=== PATIENT | female | born 1935 ===

== ENCOUNTER 2016-05-29 19:50 | Inpatient (IN) | payer OTHER, MEDICARE ==
[2016-05-29 20:17] VITALS: BMI 33.3
--- NOTE | 2016-05-29 20:17 | ED PDOC ---
Arrival/HPI - General Chief Complaint: Weakness/Neurological Deficit Time Seen by Provider: 05/29/16 19:51 Historian: Patient, Family - History of Present Illness Narrative History of Present Illness (Text): 05/29/16 20:17 Nathalie Peacock is an 81 year old female, whose past medical history includes hypertension, paroxysmal SVT, dyslipidemia, hyperlipidemia, degenerative joint disease, NSTEMI, and GERD, who presents to the Emergency department brought in by family complaining of generalized weakness today. Relative states patient woke up with generalized weakness and unable to ambulate secondary to weakness. Family note patient was pale with chills. Relative originally attributed patient symptoms to hypogylcemia and not patient improved slightly after drinking juice, but symptoms returned tonight at 19:30. Patient denies any appetite changes, chest pain, shortness of breath, nausea, vomiting, diarrhea, urinary symptoms, back pain, neck pain, headache, dizziness, or any other complaints. PMD: Dr Jennifer De Souza Time/Duration: Other (today) Symptom Onset: Gradual Symptom Course: Unchanged Activities at Onset: Rest, Light Context: Home Past Medical History - Provider Review Nursing Documentation Reviewed: Yes - Infectious Disease Hx of Infectious Diseases: None - Reproductive Menopause: Yes - Cardiac Hx Pacemaker: No - Pulmonary Hx Respiratory Disorders: No - Neurological Hx Paralysis: No - HEENT Hx HEENT Disorder: No - Renal Hx Renal Disorder: No - Endocrine/Metabolic Hx Endocrine Disorders: No - Hematological/Oncological Hx Blood Transfusions: No Hx Blood Transfusion Reaction: No - Integumentary Hx Dermatological Disorder: No - Musculoskeletal/Rheumatological Hx Musculoskeletal Disorders: No - Gastrointestinal Hx Gastrointestinal Disorders: Yes - Genitourinary/Gynecological Hx Genitourinary Disorders: No - Psychiatric Hx Psychophysiologic Disorder: No Hx Emotional Abuse: No Hx Physical Abuse: No Hx Substance Use: No - Surgical History Hx Hysterectomy: Yes - Anesthesia Hx Anesthesia Reactions: No Hx Malignant Hyperthermia: No - Suicidal Assessment Feels Threatened In Home Enviroment: No Family/Social History - Physician Review Nursing Documentation Reviewed: Yes Family/Social History: No Known Family HX Smoking Status: Never Smoked Hx Alcohol Use: No Hx Substance Use: No Allergies/Home Meds Allergies/Adverse Reactions: Allergies No Known Allergies Allergy (Verified 04/24/15 17:20) Home Medications: Home Meds Medication Instructions Recorded Confirmed Atorvastatin Calcium [Lipitor] 10 mg PO DAILY 05/18/12 05/31/15 Metoprolol Succinate [Toprol XL] 25 mg PO BID 04/24/15 05/31/15 Alendronate [Fosamax] 70 mg PO MON 05/30/15 05/31/15 Ergocalciferol [Drisdol 50,000 1 cap PO MON 05/30/15 05/31/15 Intl Units Cap] Review of Systems - Physician Review All systems were reviewed & negative as marked: Yes - Review of Systems Constitutional: Other (+chills, +generalized weakness) Eyes: Normal ENT: Normal Respiratory: Normal. absent: SOB, Cough Cardiovascular: Normal. absent: Chest Pain Gastrointestinal: Normal. absent: Abdominal Pain, Diarrhea, Nausea, Vomiting Genitourinary Female: Normal. absent: Dysuria, Frequency, Hematuria, Urine Output Changes Musculoskeletal: Normal. absent: Back Pain, Neck Pain Skin: Other (+pale) Neurological: Normal. absent: Headache, Dizziness Endocrine: Normal Hemo/Lymphatic: Normal Psychiatric: Normal Physical Exam Vital Signs Reviewed: Yes Vital Signs Temp Pulse Pulse Resp BP BP Pulse Ox 05/30/16 02:09 88 16 100/58 L 98 05/30/16 02:07 88 16 100/54 L 98 05/30/16 00:25 74 16 112/62 100 05/29/16 23:16 101 F H 74 16 92/54 L 98 05/29/16 22:39 101.3 F H 05/29/16 22:31 101.3 F H 84 16 83/45 L 94 L 05/29/16 20:20 104.1 F H 98 H 18 106/51 L 99 05/29/16 20:10 95 H 106/51 L Temperature: Febrile Blood Pressure: Hypotensive Pulse: Regular Respiratory Rate: Normal Appearance: Positive for: Well-Appearing, Non-Toxic, Comfortable Pain Distress: None Mental Status: Positive for: Alert and Oriented X 3 - Systems Exam Head: Present: Atraumatic, Normocephalic Pupils: Present: PERRL Extroacular Muscles: Present: EOMI Conjunctiva: Present: Normal Mouth: Present: Moist Mucous Membranes Neck: Present: Normal Range of Motion Respiratory/Chest: Present: Clear to Auscultation, Good Air Exchange. No: Respiratory Distress, Accessory Muscle Use Cardiovascular: Present: Regular Rate and Rhythm, Normal S1, S2. No: Murmurs Abdomen: Present: Normal Bowel Sounds. No: Tenderness, Distention, Peritoneal Signs Back: Present: Normal Inspection Upper Extremity: Present: Normal Inspection. No: Cyanosis, Edema Lower Extremity: Present: Normal Inspection. No: Edema Neurological: Present: GCS=15, CN II-XII Intact, Speech Normal Skin: Present: Warm, Dry, Normal Color. No: Rashes Psychiatric: Present: Alert, Oriented x 3, Normal Insight, Normal Concentration Medical Decision Making ED Course and Treatment: 05/29/16 20:17 Impression: 81 year old female brought in by family complaining of generalized weakness and chills since this morning. Differential Diagnosis include but are not limited to: UTI vs. sepsis vs. SIRS vs. hypoglycemia vs. electrolyte abnormality. Plan: -- EKG -- Chest X-ray -- Labs, VBG, blood cultures -- Urinalysis, urine cultures -- IV fluids -- Tylenol -- Reassess and disposition Prior Visits: Notes and results from previous visits were reviewed. On 04/24/2015, pt was seen in the Emergency department for generalized weakness , dizziness, and near-syncope. Pt was admitted to the hospital for further evaluation. Progress Notes: Reviewed EKG, NSR at [address]-segment elevations or depressions, no T-wave inversions, normal intervals. 05/29/16 21:50 Reviewed radiology, Chest X-ray shows no active disease. 05/29/16 22:[address] De Souza, who is aware and agrees with plan. Accepts pt in to his service. 05/29/16 22:28 Lactate: 2.2, pt febrile, hypotensive. Called Code Sepsis. 05/29/16 23:[address] De Souza, requests ICU consult. seen by dr watters not icu candidate pt will be admitted to telemetry 05/30/16 06:45 - Lab Interpretations Lab Results: 05/29/16 20:24 05/29/16 20:24 Lab Results 05/29/16 23:43: pO2 60 H, VBG pH 7.27 L, VBG pCO2 49.0, VBG HCO3 22.5, VBG Total CO2 24.0, VBG O2 Sat (Calc) 90.2 H, VBG Base Excess -4.7 L, VBG Potassium 4.3, Sodium 138.0, Chloride 111.0 H, Glucose 124 H, Lactate 1.2, FiO2 21.0, Lactic Acid 1.1, Venous Blood Potassium 4.3 05/29/16 21:00: Urine Color Yellow, Urine Appearance Cloudy, Urine pH 6.0, Ur Specific [place] 1.025, Urine Protein 100 H, Urine Glucose (UA) Negative, Urine Ketones Negative, Urine Blood Large H, Urine Nitrate Negative, Urine Bilirubin Negative, Urine Urobilinogen 0.2, Ur Leukocyte Esterase Small H, Urine RBC 5 - 10, Urine WBC 10 - 15, Ur Epithelial Cells 0 - 2, Urine Bacteria Many 05/29/16 20:24: WBC 7.8 D, RBC 3.85, Hgb 12.2, Hct 36.4, MCV 94.5, MCH 31.7, MCHC 33.5, RDW 12.4, Plt Count 150, MPV 9.3, Gran % 89.7 H, Lymph % (Auto) 6.3 L , [place] % (Auto) 3.3, Eos % (Auto) 0.4 L, Baso % (Auto) 0.3, Gran # 6.97 H, Lymph # 0.5 L, [place] # 0.3, Eos # 0.0, Baso # 0.02, PT 10.7, INR 0.99, APTT 25.4 , pO2 41, VBG pH 7.36, VBG pCO2 49.0, VBG HCO3 27.7, VBG Total CO2 29.2 H, VBG O2 Sat (Calc) 76.2 H, VBG Base Excess 1.5, VBG Potassium 4.5, Sodium 137.0, Chloride 105.0, Glucose 146 H, Lactate 2.2 H, FiO2 21.0, Potassium 4.1, Carbon Dioxide 28, Anion Gap 13, BUN 19, Creatinine 1.1, Est GFR ( Amer) 58, Est GFR (Non-Af Amer) 48, Random Glucose 141 H, Calcium 9.3, Phosphorus 2.7, Magnesium 2.0, Total Bilirubin 1.1, AST 108 H, ALT 99 H, Alkaline Phosphatase 157 H, Total Protein 7.5, Albumin 3.9, Globulin 3.7, Albumin/Globulin Ratio 1.1 , Venous Blood Potassium 4.5 05/29/16 00:00: Total Creatine Kinase 128, Troponin I 0.24 H* D I have reviewed the lab results: Yes - RAD Interpretation Narrative RAD Interpretations (Text): Chest X-ray shows no active disease. 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 Rate : 98 BPM Rhythm : NSR Interpretation : No ST-segment elevations or depressions, no T-wave inversions, normal intervals. Comparison : No acute change from previous EKG on 04/24/2015. Interpreted by ED Physician: Yes Type: 12 lead EKG - Medication Orders Current Medication Orders: Acetaminophen (Tylenol 325mg Tab) 650 mg PO Q6H PRN PRN Reason: FOR TEMP>=99.5F Acetaminophen (Tylenol 650 Mg Supp) 650 mg RC Q6H PRN PRN Reason: TEMP>=99.5F Aspirin (Ecotrin) 81 mg PO DAILY RASHAUN Clopidogrel Bisulfate (Plavix) 75 mg PO DAILY RASHAUN Enoxaparin Sodium (Lovenox) 80 mg SC Q12H RASHAUN PRN Reason: Protocol Last Admin: 05/30/16 04:25 Dose: 80 MG Subcutaneous Administrations Document 05/30/16 04:25 [id number] (Rec: 05/30/16 04:25 [id number]) Injection Site MAR Injection Site Left Abdomen Charges for Administration # of Subcutaneous Administrations 1 Ergocalciferol (Drisdol 50,000 Intl Units Cap) 1 cap PO MON RASHAUN Piperacillin Sod/Tazobactam Sod (Zosyn 3.375 In Ns 100ml) 100 mls @ 200 mls/hr IVPB Q6 RASHAUN PRN Reason: Protocol Stop: 06/03/16 18:29 Last Admin: 05/30/16 05:35 Dose: 200 MLS/HR eMAR Start Stop Document 05/30/16 05:35 [email or web address] (Rec: 05/30/16 05:36 [id number]) Intravenous Solution Start Date 05/30/16 Start Time 05:36 End Date 05/30/16 End time 06:01 Total Infusion Time 25 Pantoprazole Sodium (Protonix Ec Tab) 40 mg PO ACB RASHAUN Polyethylene Glycol (Miralax) 17 gm PO DAILY RASHAUN Discontinued Medications Acetaminophen (Tylenol 325mg Tab) 650 mg PO STAT STA Stop: 05/29/16 20:32 Last Admin: 05/29/16 20:58 Dose: 650 MG Albuterol/Ipratropium (Duoneb 3 Mg/0.5 Mg (3 Ml) Ud) 3 ml IH STAT STA Stop: 05/30/16 04:43 Last Admin: 05/30/16 05:05 Dose: 3 ML Clopidogrel Bisulfate (Plavix) 300 mg PO STAT STA Stop: 05/30/16 03:59 Last Admin: 05/30/16 04:25 Dose: 300 MG Furosemide (Lasix) 40 mg IVP STAT STA Stop: 05/30/16 04:43 Last Admin: 05/30/16 04:57 Dose: 40 MG MAR Blood Pressure Document 05/30/16 04:57 [email or web address] (Rec: 05/30/16 04:57 [id number]) Blood Pressure Blood Pressure (100/60-150/90) 170/88 IVP Administration Document 05/30/16 04:57 [email or web address] (Rec: 05/30/16 04:57 [id number]) Charges for Administration # of IVP Administrations 1 Sodium Chloride (Sodium Chloride 0.9%) 1,000 mls @ 80 mls/hr IV .[id number] RASHAUN Last Admin: 05/29/16 20:45 Dose: 80 MLS/HR eMAR Start Stop Document 05/29/16 20:45 SF (Rec: 05/29/16 20:58 SF [email or web address]) Intravenous Solution Start Date 05/29/16 Start Time 20:45 Piperacillin Sod/Tazobactam Sod (Zosyn 3.375 In Ns 100ml) 100 mls @ 200 mls/hr IVPB STAT STA PRN Reason: Protocol Stop: 05/29/16 22:43 Last Admin: 05/29/16 22:38 Dose: 200 MLS/HR eMAR Start Stop Document 05/29/16 22:38 [email or web address] (Rec: 05/29/16 22:38 [email or web address] [facility] [id number]) Intravenous Solution Start Date 05/29/16 Start Time 22:38 End Date 05/29/16 Vancomycin HCl (Vancomycin 1gm) 250 mls @ 167 mls/hr IVPB STAT STA PRN Reason: Protocol Stop: 05/29/16 23:44 Last Admin: 05/29/16 23:46 Dose: 167 MLS/HR eMAR Start Stop Document 05/29/16 23:46 [email or web address] (Rec: 05/29/16 23:47 [id number]) Intravenous Solution Start Date 05/29/16 Start Time 23:47 End Date 05/29/16 Sodium Chloride (Sodium Chloride 0.9%) 1,000 mls @ 150 mls/hr IV .Q6H40M RASHAUN Last Admin: 05/30/16 02:19 Dose: 150 MLS/HR eMAR Start Stop Document 05/30/16 02:19 [email or web address] (Rec: 05/30/16 02:19 [email or web address] [id number]) Intravenous Solution Start Date 05/30/16 Start Time 02:19 End Date 05/30/16 Sodium Chloride 2,400 ml/ IV (SUPPLIES) 2,400 mls @ 4,953.24 mls/hr IV ONCE ONE PRN Reason: 60 ML/KG/HR Stop: 05/29/16 22:28 Last Admin: 05/29/16 22:40 Dose: 4,953.24 MLS/HR eMAR Start Stop Document 05/29/16 22:40 [email or web address] (Rec: 05/29/16 22:40 [id number]) Intravenous Solution Start Date 05/29/16 Start Time 22:40 End Date 05/29/16 Sodium Chloride 2,400 ml/ IV (SUPPLIES) 2,400 mls @ 4,953.24 mls/hr IV ONCE ONE PRN Reason: 60 ML/KG/HR Stop: 05/29/16 23:46 Last Admin: 05/30/16 01:10 Dose: 4,953.24 MLS/HR eMAR Start Stop Document 05/30/16 01:10 [email or web address] (Rec: 05/30/16 01:10 CAST [id number]) Intravenous Solution Start Date 05/30/16 Start Time 01:10 End Date 05/30/16 Iohexol (Omnipaque 350 100 Ml) Confirm Administered Dose 350 mg .ROUTE .STK-MED ONE Stop: 05/30/16 01:33 Metoprolol Tartrate (Lopressor) 2.5 mg IVP ONCE ONE Stop: 05/30/16 03:14 Last Admin: 05/30/16 03:24 Dose: 2.5 MG MAR Pulse and Blood Pressure Document 05/30/16 03:24 [id number] (Rec: 05/30/16 03:25 [id number]) Pulse Pulse Rate (60-90) 140 Blood Pressure Blood Pressure (100/60-150/90) 98/64 IVP Administration Document 05/30/16 03:24 [email or web address] (Rec: 05/30/16 03:25 [email or web address] [id number]) Charges for Administration # of IVP Administrations 1 - Scribe Statement The provider has reviewed the documentation as recorded by the Estela Pierce Provider Attestation: All medical record entries made by the Andieibrosa maria were at my direction and personally dictated by me. I have reviewed the chart and agree that the record accurately reflects my personal performance of the history, physical exam, medical decision making, and the department course for this patient. I have also personally directed, reviewed, and agree with the discharge instructions and disposition. Disposition/Present on Arrival - Present on Arrival Any Indicators Present on Arrival: No History of DVT/PE: No History of Uncontrolled Diabetes: No Urinary Catheter: No History of Decub. Ulcer: No History Surgical Site Infection Following: None - Disposition Have Diagnosis and Disposition been Completed?: Yes Diagnosis: Sepsis Disposition: HOSPITALIZED Disposition Time: 22:45 Condition: FAIR
[2016-05-29 20:32] LABS: ADD MANUAL DIFF? NO
[2016-05-29 20:38] LABS: BASO # 0.02 K/mm3 (0.0-2.0); BASO % 0.3 % (0.0-3.0); EOS % 0.4 % (1.5-5.0); GRAN # 6.97 (1.4-6.5); GRAN % 89.7 % (50.0-68.0); HEMATOCRIT 36.4 % (36.0-48.0); LYMPH # 0.5 (1.2-3.4); LYMPH % 6.3 % (22.0-35.0); MEAN CELL VOLUME 94.5 fL (80.0-105.0); MEAN CORPUSCULAR HEMOGLOBIN 31.7 pg (25.0-35.0); MEAN CORPUSCULAR HGB CONC 33.5 g/dl (31.0-37.0); MEAN PLATELET VOLUME 9.3 fl (7.0-11.0); MONO # 0.3 (0.1-0.6); MONO % 3.3 % (1.0-6.0); PLATELET COUNT 150 10^3/uL (120.0-450.0); RED CELL DISTRIBUTION WIDTH 12.4 % (11.5-14.5); VENOUS BLOOD GAS BASE EXCESS 1.5 mmol/L (0.0-2.0); VENOUS BLOOD PH 7.36 (7.32-7.43); WHITE BLOOD COUNT 7.8 10^3/ul (4.5-11.0)
[2016-05-29] MEDS ORDERED: Sodium Chloride 0.9% 1,000 ML IV SCH ×2 (20:45→22:16)
[2016-05-29 20:49] LABS: ALB/GLOB RATIO 1.1 (1.1-1.8); BILIRUBIN,TOTAL 1.1 mg/dL (0.2-1.3); CALCIUM 9.3 mg/dL (8.4-10.5); PHOSPHOROUS 2.7 mg/dL (2.5-4.5); POTASSIUM 4.1 mmol/L (3.6-5.0); TOTAL PROTEIN 7.5 g/dL (5.8-8.3)
[2016-05-29 20:56] LABS: INR 0.99 (0.93-1.08); PARTIAL THROMBOPLASTIN TIME 25.4 Seconds (23.7-30.8)
[2016-05-29 21:13] LABS: URINE BILIRUBIN NEGATIVE (NEGATIVE); URINE BLOOD LARGE (NEGATIVE); URINE GLUCOSE (UA) NEGATIVE (NEGATIVE); URINE KETONE NEGATIVE (NEGATIVE); URINE LEUKOCYTE ESTERASE SMALL Leu/uL (NEGATIVE); URINE PROTEIN 100 mg/dL (<30 mg/dL); URINE UROBILINOGEN 0.2 E.U./dL (<1 E.U./dL)
[2016-05-29 21:15] LABS: URINE APPEARANCE CLOUDY (CLEAR); URINE COLOR YELLOW (YELLOW)
[2016-05-29 21:19] LABS: URINE BACTERIA MANY (NEG); URINE EPITHELIAL CELLS 0 - 2 /hpf (0-5)
[2016-05-29] MEDS ORDERED: Piperacillin/Tazobact 3.375 gm 100 ML IVPB STA (22:14)
[2016-05-29] MEDS ORDERED: Vancomycin 1gm in NS 250ml 250 ML IVPB STA (22:15)
[2016-05-29 23:55] LABS: VENOUS BLOOD GAS BASE EXCESS -4.7 mmol/L (0.0-2.0); VENOUS BLOOD PH 7.27 (7.32-7.43)
--- NOTE | 2016-05-30 00:51 | CP.PCM.CON ---
History of Present Illness - History of Present Illness History of Present Illness: Reason for ICU consult: Code Sepsis + hypotension HPI: 81 y/o female with a PMHx Htn, DJD, Osteoporosis, Diverticulosis and GERD was brought to the ED by her family due to complaints of lethargy and fatigue which began this morning. As per the patient she states she woke up this morning and felt very tired; the patient's family thought she may be suffering from hypoglycemia so they gave her some juice to drink and she only momentarily felt better. She subsequently felt hot so they gave her 2 tylenol pills and she felt better, but again, only for a short while. She continued to remain lethargic for the rest of the day so they brought her in to the ED. The patient herself reports having urinary hesitancy and only urinating a small amount over the past 2-3 days, otherwise denies any complaints of dysuria, fequency, shortness of breath, light headedness, dizziness, chest pain, palpitations, abdominal pain, nausea, vomiting, headache or diarrhea. She does report feeling fevers and chills and also admits to feeling more weak than usual. She denies any recent travel or sick contacts. PMHx: Htn COSME Osteoporosis Diverticulosis GERD Allergies: NKDA Fam Hx: reviewed and noncontributory Soc Hx: denies tobacco/etoh/illicit drug use; lives at home with her family Home meds: Miralax 17gm po daily Protonix 40mg po daily Lovaza 2gm po daily Toprol XL 25mg po daily Folic Acid 1mg po daily Vit D weekly Celebrex 200mg po daily Lipitor 10mg po hs ASA 81mg po daily Fosamax 70mg po Qwkly Review of Systems - Review of Systems Review of Systems: As per HPI otherwise negative for a 12 point ROS Past Patient History - Infectious Disease Hx of Infectious Diseases: None - Past Social History Smoking Status: Never Smoked Alcohol: None Drugs: Denies Home Situation {Lives}: With Family - CARDIAC Hx Pacemaker: No - PULMONARY Hx Respiratory Disorders: No - NEUROLOGICAL Hx Paralysis: No - HEENT Hx HEENT Problems: No - RENAL Hx Chronic Kidney Disease: No - ENDOCRINE/METABOLIC Hx Endocrine Disorders: No - HEMATOLOGICAL/ONCOLOGICAL Hx Blood Transfusions: No Hx Blood Transfusion Reaction: No - INTEGUMENTARY Hx Dermatological Problems: No - MUSCULOSKELETAL/RHEUMATOLOGICAL Hx Musculoskeletal Disorders: No - GASTROINTESTINAL Hx Gastrointestinal Disorders: Yes - GENITOURINARY/GYNECOLOGICAL Hx Genitourinary Disorders: No - PSYCHIATRIC Hx Psychophysiologic Disorder: No Hx Emotional Abuse: No Hx Physical Abuse: No Hx Substance Use: No - SURGICAL HISTORY Hx Hysterectomy: Yes - ANESTHESIA Hx Anesthesia Reactions: No Hx Malignant Hyperthermia: No Meds Allergies/Adverse Reactions: Allergies Allergy/AdvReac Type Severity Reaction Status Date / Time No Known Allergies Allergy Verified 04/24/15 17:20 - Medications Medications: Current Medications Acetaminophen (Tylenol 325mg Tab) 650 mg PO Q6H PRN PRN Reason: FOR TEMP>=99.5F Acetaminophen (Tylenol 650 Mg Supp) 650 mg RC Q6H PRN PRN Reason: TEMP>=99.5F Aspirin (Ecotrin) 81 mg PO DAILY RASHAUN Ergocalciferol (Drisdol 50,000 Intl Units Cap) 1 cap PO MON RASHAUN Sodium Chloride (Sodium Chloride 0.9%) 1,000 mls @ 150 mls/hr IV .Q6H40M RASHAUN Piperacillin Sod/Tazobactam Sod (Zosyn 3.375 In Ns 100ml) 100 mls @ 200 mls/hr IVPB Q6 RASHAUN PRN Reason: Protocol Stop: 06/03/16 18:29 Pantoprazole Sodium (Protonix Ec Tab) 40 mg PO ACB RASHAUN Polyethylene Glycol (Miralax) 17 gm PO DAILY RASHAUN Physical Exam - Constitutional Appears: Well, Non-toxic - Head Exam Head Exam: ATRAUMATIC, NORMOCEPHALIC - Eye Exam Eye Exam: EOMI, Normal appearance - ENT Exam ENT Exam: Mucous Membranes Moist - Respiratory Exam Respiratory Exam: Clear to Auscultation Bilateral, NORMAL BREATHING PATTERN. absent: Rhonchi, Wheezes - Cardiovascular Exam Cardiovascular Exam: REGULAR RHYTHM, +S1, +S2 - GI/Abdominal Exam GI & Abdominal Exam: Soft. absent: Guarding, Rebound, Tenderness - Rectal Exam Rectal Exam: Deferred - Extremities Exam Extremities exam: Positive for: normal inspection. Negative for: calf tenderness - Back Exam Back exam: absent: CVA tenderness (L), CVA tenderness (R) - Neurological Exam Neurological exam: Alert, Oriented x3 - Psychiatric Exam Psychiatric exam: Normal Affect, Normal Mood - Skin Skin Exam: Dry, Intact, Normal Color, Warm Results - Vital Signs Recent Vital Signs: Last Vital Signs Temp 101 F H 05/29/16 23:16 Pulse 74 05/30/16 00:25 Resp 16 05/30/16 00:25 BP 112/62 05/30/16 00:25 Pulse Ox 100 05/30/16 00:25 - Labs Result Diagrams: 05/29/16 20:24 05/29/16 20:24 Labs: Laboratory Results - last 24 hr 05/29/16 05/29/16 05/29/16 20:24 21:00 23:43 WBC 7.8 D RBC 3.85 Hgb 12.2 Hct 36.4 MCV 94.5 MCH 31.7 MCHC 33.5 RDW 12.4 Plt Count 150 MPV 9.3 Gran % 89.7 H Lymph % (Auto) 6.3 L [place] % (Auto) 3.3 Eos % (Auto) 0.4 L Baso % (Auto) 0.3 Gran # 6.97 H Lymph # 0.5 L Humphreys # 0.3 Eos # 0.0 Baso # 0.02 PT 10.7 INR 0.99 APTT 25.4 pO2 41 60 H VBG pH 7.36 7.27 L VBG pCO2 49.0 49.0 VBG HCO3 27.7 22.5 VBG Total CO2 29.2 H 24.0 VBG O2 Sat (Calc) 76.2 H 90.2 H VBG Base Excess 1.5 -4.7 L VBG Potassium 4.5 4.3 Sodium 137 138.0 Chloride 100 111.0 H Glucose 146 H 124 H Lactate 2.2 H 1.2 FiO2 21.0 21.0 Potassium 4.1 Carbon Dioxide 28 Anion Gap 13 BUN 19 Creatinine 1.1 Est GFR ( Amer) 58 Est GFR (Non-Af Amer) 48 Random Glucose 141 H Calcium 9.3 Phosphorus 2.7 Magnesium 2.0 Total Bilirubin 1.1 AST 108 H ALT 99 H Alkaline Phosphatase 157 H Total Protein 7.5 Albumin 3.9 Globulin 3.7 Albumin/Globulin Ratio 1.1 Venous Blood Potassium 4.5 4.3 Urine Color Yellow Urine Appearance Cloudy Urine pH 6.0 Ur Specific [place] 1.025 Urine Protein 100 H Urine Glucose (UA) Negative Urine Ketones Negative Urine Blood Large H Urine Nitrate Negative Urine Bilirubin Negative Urine Urobilinogen 0.2 Ur Leukocyte Esterase Small H Urine RBC 5 - 10 Urine WBC 10 - 15 Ur Epithelial Cells 0 - 2 Urine Bacteria Many - Imaging and Cardiology Chest x-ray Status: Image reviewed by me (no pulmonary effusions; no significant pul edema or infiltrates noted) Assessment & Plan - Assessment and Plan (Free Text) Assessment: 81 y/o female with a PMHx Htn, DJd, Osteoporosis, Diverticulosis, GERD was brought to the ED with weakness and lethargy and is found to have a UTI. She was febrile on arrival at 104 F with an SBP in the 80's. She has been fluid resuscitated with 2.4L IVF and is now receiving an additional 2L IVF hydration. A repeat lactic acid was done showing a drop from 2.2 to 1.2 and her most recent BP is 112/62mmHg. She appears to have been successfully fluid resuscitated and should be continued on IVF for maintenance until her infection clears. I was asked to evaluate her for the ICU, however given her current clinical picture of being AAOX3, without any complaints aside from slight lethargy, appearing to be in good spirits and a resolving lactic acidosis she does not require aggressive ICU level care at this time. It is worth noting however that her pH did change slightly on her ABG and it's secondary to metabolic acidosis, which is likely to continue to worsen and show a lower HC03 on tomorrow's labwork. In the event that her clinical condition worsens or deteriorates, I will be available in-house for re-evaluation as needed. Thank you for this consultation Case discussed with Dr. Willams in the ED labs and images reviewed personally total time of care: 30 minutes
[2016-05-30] MEDS ORDERED: Iohexol 350 MG/100 ML VIAL ONE (01:32)
--- NOTE | 2016-05-30 01:32 | US ---
EXAM: US Abdomen Complete CLINICAL HISTORY: 81 years old, female; Signs and symptoms; Fever; Additional info: Transaminitis TECHNIQUE: Real-time ultrasound of the abdomen (complete) with image documentation. EXAM DATE/TIME: 05/29/2016 11:21 PM COMPARISON: There are no prior studies for comparison. FINDINGS: Liver: No focal lesions are seen in the liver. Texture is mildly heterogeneous...There is hepatopedal flow in the main portal vein. Gallbladder: Gallbladder is distended with no stones, sludge or wall thickening. Common bile duct: Common bile duct measures 6 mm in diameter. Pancreas: Pancreas is obscured by bowel gas. Kidneys: Kidneys are unremarkable. Spleen: Spleen is unremarkable. Aorta: Aorta is anterior and bowel gas. Inferior vena cava is almost completely obscured by bowel gas Inferior vena cava: See above. IMPRESSION: Midline structures secured by bowel gas colon no gallstones or ductal dilatation; no focal hepatic lesion
[2016-05-30] MEDS: Piperacillin/Tazobact 3.375 gm 100 ML IVPB SCH ×2 (02:41→05:35)
--- NOTE | 2016-05-30 02:58 | CP.PCM.PN ---
Subjective - Date & Time of Evaluation Date of Evaluation: 05/30/16 Time of Evaluation: 02:56 - Subjective Subjective: S: Nurse calls and gives data HR -140'S for past 15 minutes.(03:00),106/70,T 101 *F RR 16/min, and states that she has done EKG. Had Heart burn which has subsided. She is S/P Code sepsis. Has received 4 Litre of fluid. Troponin 0.24 up from 0.02 on April 24 O: Obese ,not in distress. BP 98 systolic, HR 140 /min. LUNGS:Normal breathing pattern. HEART:Tachycardic. A:NSTEMI. SVT. Hx of atrial fibrillation. Obesity. EKG--->SVT.No acute changes. Serial EKG,troponin. ordered Lopressor 2.5 mg IV x 1. Objective - Vital Signs/Intake and Output Vital Signs (last 24 hours): Temp Pulse Resp BP Pulse Ox 101 F H 88 16 100/58 L 98 05/29/16 23:16 05/30/16 02:09 05/30/16 02:09 05/30/16 02:09 05/30/16 02:09 - Medications Medications: Current Medications Acetaminophen (Tylenol 325mg Tab) 650 mg PO Q6H PRN PRN Reason: FOR TEMP>=99.5F Acetaminophen (Tylenol 650 Mg Supp) 650 mg RC Q6H PRN PRN Reason: TEMP>=99.5F Aspirin (Ecotrin) 81 mg PO DAILY [facility] Ergocalciferol (Drisdol 50,000 Intl Units Cap) 1 cap PO MON [facility] Sodium Chloride (Sodium Chloride 0.9%) 1,000 mls @ 150 mls/hr IV .Q6H40M [facility] Last Admin: 05/30/16 02:19 Dose: 150 mls/hr Piperacillin Sod/Tazobactam Sod (Zosyn 3.375 In Ns 100ml) 100 mls @ 200 mls/hr IVPB Q6 [facility] PRN Reason: Protocol Stop: 06/03/16 18:29 Last Admin: 05/30/16 02:41 Dose: Not Given Pantoprazole Sodium (Protonix Ec Tab) 40 mg PO ACB [facility] Polyethylene Glycol (Miralax) 17 gm PO DAILY [facility] - Labs Labs: PT 10.7 Seconds (9.9-11.8) 05/29/16 20:24 INR 0.99 (0.93-1.08) 05/29/16 20:24 APTT 25.4 Seconds (23.7-30.8) 05/29/16 20:24
--- NOTE | 2016-05-30 03:08 | CT ---
EXAM: CT Abdomen and Pelvis With Intravenous Contrast CLINICAL HISTORY: 81 years old, female; Signs and symptoms; Other: R/O sepsis TECHNIQUE: Axial computed tomography images of the abdomen and pelvis with intravenous contrast. This CT exam was performed using one or more of the following dose reduction techniques: automated exposure control, adjustment of the mA and/or kV according to patient size, and/or use of iterative reconstruction technique. Coronal and sagittal reformatted images were created and reviewed. CONTRAST: 100 mL of OMNIPAQUE administered intravenously. COMPARISON: No relevant prior studies available. FINDINGS: Calcification versus clip in the right hepatic lobe. The spleen is normal. There is a cluster of cystic structures in the pancreatic tail measuring 4 x 5 cm on image 57. The adjacent pancreatic duct is dilated measuring up to 8 mm. The pancreatic duct in the body is normal caliber measuring 2.5 mm. There is no peripancreatic inflammation. No gallstones. No hydronephrosis. There is mild bilateral left perinephric stranding. There appears to be slightly prominent wall enhancement of the ureters. Subcentimeter hypoattenuating right renal lesion too small to characterize Stool and fluid throughout the colon. Fluid and stool within the distal ileum. A normal appendix is identified images 117 through 127, coronal images 67 through 68. Punctate areas of sclerosis and several upper lumbar vertebrae. IMPRESSION: Fluid intermixed with stool in the distal ileum and colon, a nonspecific finding however could also be indicative of enteritis. Bilateral perinephric stranding and bilateral prominent ureteral wall enhancement, both of which raise the possibility of infectious/inflammatory process. Recommend correlation with urinalysis. Cystic mass in the pancreatic tail for which followup is recommended. Differential diagnosis would include serous and mucinous cystadenoma and intraductal papillary mucinous tumor. EXAM: CT Chest CLINICAL HISTORY: 81 years old, female; Signs and symptoms; Other: R/O sepsis TECHNIQUE: Axial computed tomography images of the chest withOUT intravenous contrast. This CT exam was performed using one or more of the following dose reduction techniques: automated exposure control, adjustment of the mA and/or kV according to patient size, and/or use of iterative reconstruction technique. Coronal and sagittal reformatted images were created and reviewed. EXAM DATE/TIME: 05/29/2016 11:17 PM COMPARISON: TMT - MYOCARDIAL STRESS REST SPECT 05/03/2015 9:06:22 AM FINDINGS: No aortic aneurysm. No periaortic fluid. Small mediastinal and hilar lymph nodes. Trace pleural fluid and associated atelectasis. Platelike atelectasis right midlung. Nonspecific hazy bibasilar opacities that are nonspecific and at least partially due to motion however could represent developing edema or developing infectious/inflammatory process. Suggestion of small area consolidation in the medial left lower lung. Limited evaluation due to motion and lack of contrast. Followup may be helpful. Early developing infectious process or underlying lesion would be possible although felt to be more likely atelectatic in etiology. Minimal degenerative changes in the osseous structures. IMPRESSION: Study limited by patient motion and lack of intravenous contrast. Minimal pleural effusions/atelectasis. Hazy bibasilar opacities as discussed above.
[2016-05-30] MEDS ORDERED: Metoprolol 1 mg/ml Inj IVP ONE (03:13)
[2016-05-30] MEDS: Enoxaparin 80 mg Syringe SC SCH ×2 (04:25→16:33)
[2016-05-30] MEDS ORDERED: Albuterol-Ipratrop 3 mg / 0.5 (3 ml) UD IH STA (04:42)
--- NOTE | 2016-05-30 04:46 | CP.PCM.PN ---
Subjective - Date & Time of Evaluation Date of Evaluation: 05/30/16 Time of Evaluation: 04:44 - Subjective Subjective: Patient seen again for wheezing ,sob. [place] wheezing from distance. BP 170/88 ,RR 20/min Pulse 97/min. Rx, hold fluid CXR,BNP Lasix,duoneb as ordered. Objective - Vital Signs/Intake and Output Vital Signs (last 24 hours): Temp Pulse Resp BP Pulse Ox 101 F H 140 H 16 98/64 L 98 05/29/16 23:16 05/30/16 03:24 05/30/16 02:09 05/30/16 03:24 05/30/16 02:09 - Medications Medications: Current Medications Acetaminophen (Tylenol 325mg Tab) 650 mg PO Q6H PRN PRN Reason: FOR TEMP>=99.5F Acetaminophen (Tylenol 650 Mg Supp) 650 mg RC Q6H PRN PRN Reason: TEMP>=99.5F Aspirin (Ecotrin) 81 mg PO DAILY [facility] Clopidogrel Bisulfate (Plavix) 75 mg PO DAILY [facility] Enoxaparin Sodium (Lovenox) 80 mg SC Q12H [facility] PRN Reason: Protocol Last Admin: 05/30/16 04:25 Dose: 80 mg Ergocalciferol (Drisdol 50,000 Intl Units Cap) 1 cap PO MON [facility] Sodium Chloride (Sodium Chloride 0.9%) 1,000 mls @ 150 mls/hr IV .Q6H40M [facility] Last Admin: 05/30/16 02:19 Dose: 150 mls/hr Piperacillin Sod/Tazobactam Sod (Zosyn 3.375 In Ns 100ml) 100 mls @ 200 mls/hr IVPB Q6 [facility] PRN Reason: Protocol Stop: 06/03/16 18:29 Last Admin: 05/30/16 02:41 Dose: Not Given Pantoprazole Sodium (Protonix Ec Tab) 40 mg PO ACB [facility] Polyethylene Glycol (Miralax) 17 gm PO DAILY [facility] - Labs Labs: PT 10.7 Seconds (9.9-11.8) 05/29/16 20:24 INR 0.99 (0.93-1.08) 05/29/16 20:24 APTT 25.4 Seconds (23.7-30.8) 05/29/16 20:24
[2016-05-30 06:34] LABS: HEMATOCRIT 31.8 % (36.0-48.0); MEAN CELL VOLUME 94.9 fL (80.0-105.0); MEAN CORPUSCULAR HEMOGLOBIN 31.6 pg (25.0-35.0); MEAN CORPUSCULAR HGB CONC 33.3 g/dl (31.0-37.0); MEAN PLATELET VOLUME 8.8 fl (7.0-11.0); PLATELET COUNT 124 10^3/uL (120.0-450.0); RED CELL DISTRIBUTION WIDTH 12.6 % (11.5-14.5); WHITE BLOOD COUNT 8.2 10^3/ul (4.5-11.0)
[2016-05-30 06:40] LABS: ADD MANUAL DIFF? YES
[2016-05-30 06:50] LABS: ALKALINE PHOSPHATASE 139 U/L (38-133); ALT/SGPT 87 U/L (7-56); AST/SGOT 75 U/L (15-39); BILIRUBIN,DIRECT 1.1 mg/dL (0.0-0.4); BILIRUBIN,TOTAL 1.5 mg/dL (0.2-1.3); BLOOD UREA NITROGEN 15 mg/dL (7-21); CALCIUM 7.8 mg/dL (8.4-10.5); CARBON DIOXIDE 23 mmol/L (21-33); CHLORIDE 107 mmol/L (98-107); GFR AFRICAN-AMERICAN > 60; GLUCOSE,RANDOM 130 mg/dL (70-110); MAGNESIUM 1.7 mg/dL (1.7-2.2); POTASSIUM 3.9 mmol/L (3.6-5.0); SODIUM 136 mmol/L (132-148); TOTAL PROTEIN 6.4 g/dL (5.8-8.3); URIC ACID 3.9 mg/dL (2.5-6.2)
[2016-05-30 07:12] LABS: TROPONIN I 0.18 ng/mL
[2016-05-30] MEDS ORDERED: Piperacillin/Tazobact 3.375 gm 100 ML IVPB SCH (07:16)
--- NOTE | 2016-05-30 08:01 | RAD ---
HISTORY: sob/wheezing/received over 4Lfluid. COMPARISON: 05/29/2016 FINDINGS: LUNGS: No active pulmonary disease. PLEURA: No significant pleural effusion identified, no pneumothorax apparent. CARDIOVASCULAR: Mild cardiomegaly. Mild vascular congestion OSSEOUS STRUCTURES: No significant abnormalities. VISUALIZED UPPER ABDOMEN: Normal. OTHER FINDINGS: None. IMPRESSION: Mild vascular congestion increased from prior exam
--- NOTE | 2016-05-30 08:09 | RAD ---
HISTORY: Sepsis Patient COMPARISON: 08/13/2015 FINDINGS: LUNGS: No active pulmonary disease. PLEURA: No significant pleural effusion identified, no pneumothorax apparent. CARDIOVASCULAR: Normal. OSSEOUS STRUCTURES: No significant abnormalities. VISUALIZED UPPER ABDOMEN: Normal. OTHER FINDINGS: None. IMPRESSION: No active disease.
[2016-05-30] MEDS: Pantoprazole 40 mg EC Tab PO SCH (08:31)
[2016-05-30] MEDS: Magnesium Oxide 400 mg Tab UD PO SCH ×2 (09:39→17:34)
[2016-05-30 09:41] LABS: CHOLESTEROL 86 mg/dL (130-200)
[2016-05-30] MEDS: POLYETHYLENE GLYCOL 3350 17 GM/Dose PACKET PO SCH (09:43)
[2016-05-30 09:47] LABS: ANISOCYTOSIS SLIGHT; BAND 2 % (0-2); HYPOCHROMIA 1+; NEUTROPHIL 88 % (50.0-70.0); PLATELET ESTIMATE SL. DEC. (NORMAL); POLYCHROMASIA SLIGHT
--- NOTE | 2016-05-30 10:09 | HP ---
The patient is an 81-year-old female who presented to the Emergency Room with weakness, extremely wea k, difficulty waking up generalized weakness. The patient came to the Emergency Room by Yoli erickson. According to the ER physician note, the patient complained of generalized weakness, diffic ulty walking. The patient was noted by the family to be having...looking pale and having chills and fever. The patient also had a poor p.o. intake. A 13-system review was done. Pertinent positive and negative dictated above. CODE STATUS: Full Code. LIVING WILL/ADVANCE DIRECTIVE: None. HEIGHT: 5 feet 2 inches. WEIGHT: 182. BMI: 33. ALLERGIES: None. HOME MEDICATIONS: Toprol-XL 25 mg once or twice a day, Protonix 40 mg daily, MiraLax 17 g once or twice a day. Lovaza 2 g twice a day, Lipitor 10 mg daily, Fosamax 70 mg weekly, folic acid 1 mg daily, aspirin 81 mg ana y, Drisdol 50,000 weekly, Celebrex 200 mg. SOCIAL HISTORY: Negative for smoking, negative for alcohol, negative for drug use. Negative for com municable transmissible disease. FAMILY HISTORY: Not available. 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 MENSTRUAL HISTORY: Postmenopausal. PAST MEDICAL AND SURGICAL HISTORY: History of hypertension, history of paroxysmal SVT...PSVT, histor y of gastroesophageal reflux, history of constipation, history of dyslipidemia, history of osteoporos is, history of hypovitaminosis D, history of...history of... history of anemia, history of dyslipidem ia, history of non-ST elevation...history of... history of hypovitaminosis D, history of urinary trac t infection... history of...history of microvascular ischemic disease of the brain, history of obesit y with elevated body mass index, history of degenerative joint disease of the knees, history of cardi ac catheterization in 05/2015 showing ejection fraction of 60-70%, history of 70% stenosis of the pro ximal ramus intermedius, history of diffuse atherosclerosis of the left circumflex and obtuse margina l, history of intimal irregularities of the right coronary artery, history of 70% stenosis of the sma ll ramus intermedius vessel, history of single vessel coronary artery disease, history of SVT...histo ry of paroxysmal supraventricular tachycardia, history of degenerative joint disease of the knees, hi story of osteoporosis, history of... history of prediabetes, history of prediabetes, history of predi abetes, history of prediabetes, history of prediabetes, history of... history of trace mitral and tra ce tricuspid regurgitation, history of... history of... history of degenerative joint disease of the knees, history of hypovi... history of constipation, history of meniscal tear and atrophy of the knee , history of... 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 history of uterine cervical mucosal ulcers, history of endometrial hyperplas ia, history of hysterectomy and salpingo-oophorectomy, history of... history of focal adenomyosis of the endometrium, history of degenerative disk disease of the lumbar spine with spinal stenosis, kathy inal narrowing, history of degenerative joint disease of the knees, history of near-syncope, history of paroxysmal supraventricular tachycardia, history of dyslipidemia, history of urinary tract infecti on, history of chronic microvascular ischemic disease of the brain, history of... The patient's past medical history is also significant for history of...of single vessel coronary artery disease. The patient came to the Emergency Room. The patient's T-max was found to be 104.1, down to 101.3, do wn to 99.4. Heart rate 98, 74, 107, 81, 82. Blood pressure initially 106/85; 83/45; 92/41; 112/60; 158, 198/64; then 170/88, down to 115/78. Respiration 18-20, O2 sat is 98-99%. HEAD EXAMINATION: The patient is seen lying in the stretcher. HEAD EXAMINATION: Normocephalic, atraumatic. HENT EXAMINATION: Shows pinkish conjunctivae. Dry oral mucosa. No neck rigidity. Soft carotid bruit. CHEST EXAMINATION: Kyphosis. LUNG EXAMINATION: Shows no rales, occasional rhonchis upper lung penaloza anteriorly. CARDIOVASCULAR EXAMINATION: S1, S2. Regular rhythm. Questionable soft systolic murmur left sternal border, left second intercostal space. ABDOMEN: Protuberant, positive bowel sounds. Questionable bilateral costovertebral angle tenderness . GENITALIA: Female. RECTAL EXAMINATION: Deferred. EXTREMITIES: Shows no pitting edema, no calf tenderness, no Homans' sign. No clubbing, no cyanosis. VASCULAR EXAMINATION: Palpable pulses. MUSCULOSKELETAL EXAMINATION: Shows a body mass index of 33.3. Cranial nerves II-XII limited. GAIT EXAMINATION: Not tested. PSYCHIATRIC EXAMINATION: Negative for anxiety. Negative for depression. Negative for suicidal or h omicidal ideation. DIAGNOSTICS: Initial CBC: WBC 7.8, hemoglobin and hematocrit 12.2 and 36.4, platelets 150, granuloc ytes 90% segs. Repeat CBC: WBC 8.2, hemoglobin and hematocrit 10.6 and 31.8, platelets 124. PT, PT T 10.7 and 25.4. Initial ABG shows a lactic acid of 2...VBG shows a lactic acid of 2.2, repeat VBG s hows pH dropping from 3.6... 36...7.36 to 7.27, and lactic acid 1.8, which was repeated and 4 hours. Chemistry: Sodium 137, potassium 4.1, chloride 100, CO2 of 28, anion gap 13, BUN 19, creatinine 1.1 , GFR 58, glucose 141...glucose 141. Lactic acid 1.1, calcium 9.3, magnes...phosphorus 2.7, magnesiu m 2.0. AST 108, ALT 99, alk phos 157. Troponin 0.24. Repeat Chemistry: Sodium 136, potassium 3.9, chloride 107, CO2 of 23, anion gap 10, BUN 15, creatinine 0.8, GFR greater than 60, glucose 130, uri c acid 3.9, calcium 7.8, magnesium 1.7, total bili 1.5, direct bilirubin 1.1. AST is down to 75 fro m 108. ALT is 87 from 99, alk phos is 139 from 157. Repeat troponin 0.24 and 0.18 and 0.18. Urine pH 6.0, specific gravity 1.025, 100 protein, large blood, small leukocyte esterase, many bacteria. I nfluenza flu was negative. Rapid flu was negative. The patient was seen and evaluated in the Emergency Room by the ER physician. The patient's blood pr essure in the early part dropped to 83/45 and 92/54. The patient needed multiple IV fluid boluses, m ore than 4 L of IV fluid bolus was given. The patient was evaluated by the car knocker. The patient's chest x-ray...chest x-ray was done which shows no active disease. The patient's EKG wa s done...The patient's EKG was done in the Emergency Room. The patient's EKG was done in the Emergen cy Room. CAT scan of the abdomen and pelvis was done. EKG shows SVT at a rate of [address]-T alston ges. CAT scan shows cluster of cystic structures in the pancreatic tail with dilated pancreatic duct , bilateral perinephric stranding, stool retention, with atelectasis and bibasilar opacities in the l corinne, with small consolidation left lower lobe lung penaloza. Abdominal sonogram was done in the Emerge ncy Room which shows hepatic echogenicity distended gallbladder. The patient was evaluated in... by the car knocker as per Dr. Rodriguez has requested. The patient... The patient...After ICU evaluation, despite the patient's hypotension and elevated M...elevated tropo china, the patient was...was admitted to telemetry. The patient during the night was seen by the house physician, Dr. Phillips. The patient was found to be in paroxysmal SVT. The patient was given Lopress or 2.5 mg IV. The patient's blood pressure was found to be elevated during the night. The patient h ad some wheezing and congestion. Repeat chest x-ray shows mild vascular congestion, for which patien t was given Lasix. The patient was evalua...and blood pressure was elevated 170 systolic. IMPRESSION AND PLAN: 1. Questionable septic versus cardiogenic shock with high-grade fever and lactic acidosis. 2. Paroxysmal supraventricular tachycardia. 3. Acute non-ST elevation myocardial infarction. 4. Hypotension...Hypotension probably secondary to acute non-ST elevation myocardial infarction versu s cardiogenic shock, versus septic shock. 5. Paroxysmal supraventricular tachycardia. 6. Transient hypotension. 7. High-grade fever of 104. 8. Granulocytosis. 9. Normocytic anemia. 10. Lactic acidosis. 11. Acute non-ST elevation myocardial infarction with elevated troponin. 12. Transaminitis. 13. Hyperglycemia with history of prediabetes. 14. Questionable urinary tract infection with proteinuria, microscopic hematuria, pyuria, bacteriuria . 15. Bilateral perinephric stranding, etiology undetermined. 16. Questionable pancreatic tail cystic mass with dilated pancreatic duct of 8 mm. 17. Bilateral perinephric stranding. 18. Right adrenal subcentimeter hypoattenuating lesion. 19. Fecal retention with constipation. 20. Lumbar vertebrae sclerosis, punctate sclerosis. 21. Questionable pyelonephritis with urinary tract infection. 22. Right middle lobe atelectasis. 23. Bibasilar opacities versus infiltrate, versus pneumonia, versus congestive heart failure. 24. Left lower lobe consolidation. 25. Degenerative joint disease of the spine. 26. Questionable healthcare-associated versus community-acquired pneumonia. 27. Mild cardiomegaly and pulmonary vascular congestion, probably volume overload secondary to IV flu id resuscitation. 28. Hetrogen...Hepatic heterogeneity. 29. Paroxysmal supraventricular tachycardia. 30. Transient hypotension. PLAN: At this time, the patient has been admitted to telemetry after evaluation by the car knocker. The patient has been ordered serial labs, serial cardiac enzymes, thyroid panel, lipid panel, hemogl obin A1c, fructosamine, glucose...glyco , CBC, blood cultures, urine cultures ordered. CONSULTATIONS: 1. Cardiology. 2. Gastroenterology. 3. Infectious disease. Procalcitonin level is ordered. CURRENT MEDICATIONS: 1. Drisdol 50,000 weekly. 2. The patient is on Ecotrin 81 daily. The patient was started on... The patient was given Lasix 40 IV during the night. The patient was given Plavix. The patient is on aspirin 81 daily. The patient started on Lasix 20 IV q. 12. The patient was given Lopressor 2.5 IV. The patient is on Lopressor 25 twice a day, Lovenox 80 mg subQ q. 12, magnesium oxide 400 twice a day, MiraLax 17 g daily, Plavix 75 mg p.o. daily, Protonix 40 mg daily. The patient's IV fluid hydration is at present completed. The patient is on Tylenol p.r.n. for fever, Xopenex nebulizer every 6 hours, Zosyn 3.375 g IV q. 6 ho urs. Serial EKG, echo with Doppler ordered. Heart-healthy diet, AG stockings, SCDs ordered. At present, the patient's condition is guarded. PROGNOSIS: Guarded. The patient has been explained about the details of her medical condition in layman's language, which she acknowledged and understands. All questions and concerns answered, which she acknowledged and u nderstands. I have also contacted the patient's daughter, Albaro, regarding the patient's cond ition. Message was left on her voicemail. The patient's entire diagnostic data, therapeutic interventions reviewed at length. At present, we a re awaiting for further recommendation by all the physicians involved in the care of the patient. Dictated and electronically signed, not read. Abran De Souza MD cc: [id number] TT: 05/30/2016 10:08:29 sam
[2016-05-30 10:59] LABS: FREE T4 1.46 ng/dL (0.78-2.19); T4 5.2 ug/dL (5.5-11.0)
[2016-05-30 11:12] LABS: THYROID STIMULATING HORMONE 1.37 mIU/mL (0.46-4.68)
[2016-05-30] MEDS: Levalbuterol 0.63 MG/3 ML Inhal Soln UD IH SCH ×3 (11:28→19:23)
[2016-05-30] MEDS: Potassium Chloride 20 mEq ER Tab PO SCH ×2 (11:48→17:34)
--- NOTE | 2016-05-30 13:20 | CP.PCM.CON ---
History of Present Illness - History of Present Illness History of Present Illness: 81 year old female with PMH of HTN, degenerative joint disease, GERD, history of diverticulosis, obesity with BMI 34 was brought in by family members because of weakness and lethargy since yesterday morning, associated with fatigue and decreased appetite. Prior to this she had been complaining of urinary hesitancy and urinary frequency for the past 3-4 days and occasional dysuria but no hematuria. She denies flank pain, no abdominal pain, no nausea or vomiting, no sore throat, no rhinorrhea, no dysphagia, no headache or dizziness, no chest pain, no SOB, no diarrhea. In the ED, urinalysis showed 10-15 WBCs in the urine and CT chest, abdomen and pelvis showed some haziness in the lungs. She was also found to have low BP initially in the ED. Infectious diseases consult is requested to further evaluate and manage. Review of Systems - Review of Systems All systems: reviewed and no additional remarkable complaints except (as per HPI ) Past Patient History - Infectious Disease Hx of Infectious Diseases: None - Past Medical History & Family History Past Medical History?: Yes Past Family History: Reviewed and not pertinent - Past Social History Smoking Status: Never Smoked Alcohol: None Drugs: Denies Home Situation {Lives}: With Family - CARDIAC Hx Pacemaker: No - PULMONARY Hx Respiratory Disorders: No - NEUROLOGICAL Hx Paralysis: No - HEENT Hx HEENT Problems: No - RENAL Hx Chronic Kidney Disease: No - ENDOCRINE/METABOLIC Hx Endocrine Disorders: No - HEMATOLOGICAL/ONCOLOGICAL Hx Blood Transfusions: No Hx Blood Transfusion Reaction: No - INTEGUMENTARY Hx Dermatological Problems: No - MUSCULOSKELETAL/RHEUMATOLOGICAL Hx Musculoskeletal Disorders: No - GASTROINTESTINAL Hx Gastrointestinal Disorders: Yes - GENITOURINARY/GYNECOLOGICAL Hx Genitourinary Disorders: No - PSYCHIATRIC Hx Psychophysiologic Disorder: No Hx Emotional Abuse: No Hx Physical Abuse: No Hx Substance Use: No - SURGICAL HISTORY Hx Hysterectomy: Yes - ANESTHESIA Hx Anesthesia Reactions: No Hx Malignant Hyperthermia: No Meds Allergies/Adverse Reactions: Allergies Allergy/AdvReac Type Severity Reaction Status Date / Time No Known Allergies Allergy Verified 04/24/15 17:20 - Medications Medications: Current Medications Acetaminophen (Tylenol 325mg Tab) 650 mg PO Q6H PRN PRN Reason: FOR TEMP>=99.5F Acetaminophen (Tylenol 650 Mg Supp) 650 mg RC Q6H PRN PRN Reason: TEMP>=99.5F Aspirin (Ecotrin) 81 mg PO DAILY [facility] Clopidogrel Bisulfate (Plavix) 75 mg PO DAILY [facility] Enoxaparin Sodium (Lovenox) 80 mg SC Q12H [facility] PRN Reason: Protocol Last Admin: 05/30/16 04:25 Dose: 80 mg Ergocalciferol (Drisdol 50,000 Intl Units Cap) 1 cap PO MON [facility] Piperacillin Sod/Tazobactam Sod (Zosyn 3.375 In Ns 100ml) 100 mls @ 200 mls/hr IVPB Q6 [facility] PRN Reason: Protocol Stop: 06/03/16 18:29 Last Admin: 05/30/16 05:35 Dose: 200 mls/hr Pantoprazole Sodium (Protonix Ec Tab) 40 mg PO ACB [facility] Polyethylene Glycol (Miralax) 17 gm PO DAILY [facility] Physical Exam - Constitutional Appears: Non-toxic, No Acute Distress - Head Exam Head Exam: NORMAL INSPECTION - Eye Exam Eye Exam: Normal appearance - ENT Exam ENT Exam: Mucous Membranes Moist - Neck Exam Neck exam: Negative for: Lymphadenopathy, Meningismus - Respiratory Exam Respiratory Exam: Decreased Breath Sounds. absent: Rales - Cardiovascular Exam Cardiovascular Exam: +S1, +S2 - GI/Abdominal Exam GI & Abdominal Exam: Soft. absent: Tenderness - Back Exam Back exam: absent: CVA tenderness (L), CVA tenderness (R) Results - Vital Signs Recent Vital Signs: Last Vital Signs Temp 101 F H 05/29/16 23:16 Pulse 107 H 05/30/16 04:51 Resp 24 05/30/16 04:51 BP 170/88 H 05/30/16 04:57 Pulse Ox 99 05/30/16 04:51 - Labs Result Diagrams: 05/30/16 06:30 05/30/16 06:30 Labs: Laboratory Results - last 24 hr 05/30/16 06:30 WBC 8.2 RBC 3.35 L Hgb 10.6 L Hct 31.8 L MCV 94.9 MCH 31.6 MCHC 33.3 RDW 12.6 Plt Count 124 MPV 8.8 Sodium 136 Potassium 3.9 Chloride 107 Carbon Dioxide 23 Anion Gap 10 BUN 15 Creatinine 0.8 Est GFR ( Amer) > 60 Est GFR (Non-Af Amer) > 60 Random Glucose 130 H Uric Acid 3.9 Calcium 7.8 L Magnesium 1.7 Total Bilirubin 1.5 H Direct Bilirubin 1.1 H AST 75 H ALT 87 H Alkaline Phosphatase 139 H Total Creatine Kinase 197 Troponin I 0.18 H* D Total Protein 6.4 Albumin 3.2 Globulin 3.2 Albumin/Globulin Ratio 1.0 L Assessment & Plan - Assessment and Plan (Free Text) Plan: Assessment Consider sepsis secondary to urinary tract infection, R/O pneumonia HTN degenerative joint disease GERD history of diverticulosis obesity with BMI 34 Plan Started patient on one dose of IV Vancomycin and intially Zosyn but we have changed it to Meropenem pending blood cx, urine cx, PCT; rapid flu test is negative Will monitor clinical response and trend fever curve
--- NOTE | 2016-05-30 14:00 | CON ---
DATE: 05/30/2016 This consult is being dictated on behalf of Dr. Jose Eduardo Murray who will be away on vacation until the . HISTORY OF PRESENT ILLNESS: The patient is an 81-year-old [place] female admitted after several episodes of weakness with and elevated temperature. She had failure to thrive over the past couple of days, according to the patient's daughter. The patient was subsequently brought to the ER after conservative measures at home did not produce a resolution of the patient's symptoms. PAST MEDICAL HISTORY: Extensive including high blood pressure, arrhythmias, anemia, coronary artery disease, atherosclerosis, prediabetes, diverticulitis, tubulovillous adenoma of the sigmoid colon, several [employer] issues. There is no issue of hematemesis, rectal bleeding, abdominal pain or shortness of breath. The patient was evaluated by several consultants and subsequently on antibiotic therapy. A discussion with the patient's daughter accomplished at bedside with the patient. There is no issue of abdominal pain, no change in bowel movements, no shortness of breath, no chest pain, etc. The patient denied any history of pancreatitis or any significant left upper quadrant discomfort. She was eating a meal at time of the above discussion. PHYSICAL EXAMINATION: VITAL SIGNS: I reviewed this patient's vital signs. HEENT: Noncontributory. LUNGS: Decreased breath sounds bilaterally, especially right base. HEART: Irregular rhythm. ABDOMEN: Significant for being doughy. No tenderness was elicited in any quadrant. The patient had irregular hypoactive bowel sounds. LABORATORY DATA: I reviewed this patient's laboratory data, which includes initially a white count of 7.8 with an H and H of 12/36, platelet count 150. INR was within normal limits. Chemistry was significant for glucose of 130 with a direct bilirubin of 1.1, mild elevation of LFTs, AST 75, ALT 87, alkaline phosphatase 139. Troponin level of 0.18 with a B-natriuretic peptide level of 1640. Urine shows 10-15 WBCs, large amount of blood, urine protein. Serology for influenza negative. The patient had a number of studies including a CT scan performed on the , which was significant for a significant amount of stool in the colon, perinephric stranding and most notably a cluster of cystic structures in the pancreatic tail with adjacent dilatation of the pancreatic duct. There is no evidence of pancreatitis at the current time. Abdominal ultrasound was also done. No focal lesions in the liver, mild distention of gallbladder. Pancreatic duct not visualized. ASSESSMENT: This consultation is being dictated on behalf of Dr. Jose Eduardo Murray. I reviewed the issues in this case with Dr. De Souza this morning. Main issue of concern is the appearance of the CT scan, which is significant again for multiple cystic structures in the distal part of the pancreas, that is the tail with adjacent mild dilatation of pancreatic duct. Note that there is no evidence grossly of necrotic pancreatitis on current study. Note that the proximal pancreatic duct seems to be within normal limits. The appearance of the multiple cystic structures in the pancreatic tail is problematic in this patient with adjacent pancreatic duct dilatation. This might be suggestive of a pancreatic lesion, either in the main duct or side branch in addition to a mid body stricture. Evaluation of the CT images, one cannot discern either one of the latter. Note that the location of the cystic structures has prognostic implication. At some time point, aspiration of these cysts or EUS evaluation, that his endoscopic ultrasound evaluation, of these cystic structures must be accomplished. Presumably FNA will be done at the time of the EUS. I think these are too small to be aspirated by percutaneous route. Again, the main issue in this case, is there a mid/distal pancreatic lesion? In cases of younger patients with pancreatic tail lesions, the issue of distal pancreatectomy can be entertained; however, given the age of the patient and comorbidities, question whether she might be able to handle a surgical procedure if warranted. I think at some time point, evaluation at [facility] for further clarification of the above issues should be entertained. At [facility], an MRCP without gadolinium IV contrast will be ordered for some further clarification. At this point in time, the patient's septic condition seems to be a more pressing issue. Note that she has multiple consultants on board including cardiology as well as ID. She is currently on piperacillin, tazobactam, and vancomycin has been discontinued. Her diet includes a heart healthy diet. Note that she has no abdominal pain on intake of p.o. food. I reviewed this patient's laboratory data, but given her age and the possibility of some occult degree of renal insufficiency, I will not order gadolinium with the MRCP to avoid possible nephrogenic fibrosis issue. At least this will afford some degree of clarification of the pancreatic anatomy as it stands. Ignacio Bowden DO, PhD cc: [id number] TT: 05/30/2016 13:59:47 Confirmation # [id number] Dictation # [id number] rn MTDD
--- NOTE | 2016-05-30 14:24 | CARD ---
APPROVED REPORT EXAM: Two-dimensional and M-mode echocardiogram with Doppler and color Doppler. INDICATION Congestive Heart Failure 2D DIMENSIONS Left Atrium (2D)3.7 (1.6-4.0cm)IVSd1.3 (0.7-1.1cm) Aortic Root (2D)3.5 (2.0-3.7cm)LVDd4.1 (3.9-5.9cm) PWd1.2 (0.7-1.1cm)LVDs2.3 (2.5-4.0cm) FS (%) 43.1 %LVEF (%)74.8 (>50%) M-Mode DIMENSIONS Aortic Cusp Exc.1.50 (1.5-2.0cm) Aortic Valve AoV Peak Kxexwpfx991.0cm/Camelia Peak GR.11mmHgAI P 1/2 Vhwu550tn Mitral Valve MV E Cyfklxcc233.0cm/sMV A Kxiosose05.2cm/sE/A ratio1.1 TDI Lateral E' Peak V6.92cm/sMedial E' Peak V6.24cm/sE/Lateral E'14.5 E/Medial E'16.0 Pulmonary Valve PV Peak Ndalbvjq25.9cm/sPV Peak Grad.3mmHg Tricuspid Valve TR Peak Vwghrufs132dw/sRAP FDIMRJFG2enIjFC Peak Gr.24mmHg RLEB80phEc LEFT VENTRICLE The left ventricle is normal size. There is borderline to mild concentric left ventricular hypertrophy. The left ventricular function is normal. The left ventricular ejection fraction is within the normal range. There is normal LV segmental wall motion. Transmitral Doppler flow pattern is Grade II-pseudonormal filling dynamics. RIGHT VENTRICLE The right ventricle is normal size. There is normal right ventricular wall thickness. The right ventricular systolic function is normal. ATRIA The left atrium size is normal. The right atrium size is normal. AORTIC VALVE The aortic valve is not well visualized. No aortic regurgitation is present. There is no aortic valvular stenosis. MITRAL VALVE There is no mitral valve regurgitation noted. TRICUSPID VALVE There is no pulmonary hypertension. GREAT VESSELS The aortic root is normal in size. PERICARDIAL EFFUSION There is a trace loculated anterior pericardial effusion. <Conclusion> The left ventricle is normal size. There is borderline to mild concentric left ventricular hypertrophy. The left ventricular function is normal. The left ventricular ejection fraction is within the normal range. There is normal LV segmental wall motion. Transmitral Doppler flow pattern is Grade II-pseudonormal filling dynamics.
--- NOTE | 2016-05-30 14:53 | CARD ---
APPROVED REPORT EKG Measurement Heart [id number] <Conclusion> Supraventricular tachycardia Nonspecific ST abnormality Abnormal ECG
[2016-05-30] MEDS: Meropenem 1g/NS 100mL IVPB 100 ML IVPB SCH ×2 (14:55→21:57)
--- NOTE | 2016-05-30 15:00 | CARD ---
APPROVED REPORT EKG Measurement Heart [id number] <Conclusion> Normal sinus rhythm Normal ECG
[2016-05-31] MEDS: Levalbuterol 0.63 MG/3 ML Inhal Soln UD IH SCH ×4 (02:30→20:03)
--- NOTE | 2016-05-31 03:37 | CON ---
DATE: 05/30/2016 REASON FOR DICTATION: Covering Dr. Malik Lamb. REASON FOR CONSULTATION: Hypotension, sepsis, cardiac evaluation. 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 Cardiac consult was called. The patient denies any chest pain, shortness of breath, any palpit ations. PAST MEDICAL HISTORY: Significant for history of coronary artery disease, history of cardiac cathete rization in 05/2015 that showed ejection fraction 60% to 70%, history of 70% stenosis proximal ramus intermedius, history of ____ disease obtuse marginal of right coronary artery, history a 70% stenosis in the small ramus intermedius, single-vessel disease, history of SVT, history of degenerative joint disease. SOCIAL HISTORY: Denies any history of alcohol abuse. PREVIOUS CARDIAC WORKUP: As follows: The patient had a cardiac catheterization 05/31/2015. It reve aled a 70% stenosis small ramus, preserved LV function. The patient was treated medically, 6. Preserved LV function. Ramus intermedius with 70% stenosis, small vessel disease. Medical treat ment was recommended by Dr. Lamb. The patient had prior to that, a stress test 05/03/2015 that showe d equivocal stress test, ejection fraction 73%. The patient had last echocardiography 04/25/2015 chhaya t showed ____% EF, trace MR, trace TR. REVIEW OF SYSTEMS: As per HPI. PHYSICAL EXAMINATION: VITAL SIGNS: Temperature afebrile, heart rate ____, blood pressure 94/61. HEENT: PERRLA, extraocular muscles intact. NECK: Supple. No carotid bruits or thyromegaly. CHEST: Clear to auscultation. HEART: S1, S2 regular. ABDOMEN: Soft. EXTREMITIES: Clubbing and cyanosis negative. BLOOD WORKUP: As follows: WBC 8.8, hemoglobin 10.6, hematocrit 31.8, platelet count of 124. Chemis try shows sodium ____, potassium 3.7, chloride 107, carbon dioxide 23, anion gap of 10, BUN 15, creat inine 0.8. Troponin 0.18, 0.18, and 0.13. IMPRESSION: Positive troponin secondary it could be due to hemodynamic instability because the patie nt had a cardiac catheterization last in 05/26/2015. Only ramus intermedius stenosis. Sepsis could be a gastrointestinal source. Hypotension secondary to sepsis, and sepsis could be the gastrointesti nal source, hypertension, hyperlipidemia. Last echo shows preserved left ventricular function. RECOMMENDATION: IV fluid, broad spectrum antibiotic, echo to assess LV function. Follow up CPK, tro ponin. Further recommendation after the finding of initial workup, echo, and at this point of the tr eatment. We will turn over the care on Wednesday to Dr. Malik Lamb. Thank you, Dr. De Souza for ____ taking care of this patient. Will follow with you. John Delong MD cc: [id number] TT: 05/31/2016 02:38:56 Confirmation # [id number] Dictation # [id number] vn 05/31/2016 02:37:20
[2016-05-31] MEDS ORDERED: Metoprolol 1 mg/ml Inj IVP STA (03:41)
--- NOTE | 2016-05-31 03:44 | CP.PCM.PN ---
Subjective - Date & Time of Evaluation Date of Evaluation: 05/31/16 Time of Evaluation: 03:41 - Subjective Subjective: Patient was seen for sustained heart rate above 130's for over 15 minutes. Has no complaints. Denies chest pain, sob, palpitation,nausea, sweating. States that she might be little nervous. Medical record was reviewed. Objective - Vital Signs/Intake and Output Vital Signs (last 24 hours): Temp Pulse Resp BP Pulse Ox 99.7 F H 151 H 20 94/69 L 94 L 05/31/16 03:24 05/31/16 03:24 05/31/16 03:24 05/31/16 03:24 05/31/16 00:01 Intake and Output: 05/30/16 05/31/16 18:59 06:59 Intake Total 480 Output Total 0 Balance 480 - Medications Medications: Current Medications Acetaminophen (Tylenol 325mg Tab) 650 mg PO Q6H PRN PRN Reason: FOR TEMP>=99.5F Last Admin: 05/30/16 20:06 Dose: 650 mg Acetaminophen (Tylenol 650 Mg Supp) 650 mg RC Q6H PRN PRN Reason: TEMP>=99.5F Aspirin (Ecotrin) 81 mg PO DAILY [facility] Last Admin: 05/30/16 09:39 Dose: 81 mg Clopidogrel Bisulfate (Plavix) 75 mg PO DAILY [facility] Last Admin: 05/30/16 09:39 Dose: 75 mg Enoxaparin Sodium (Lovenox) 80 mg SC Q12H RASHAUN PRN Reason: Protocol Last Admin: 05/30/16 16:33 Dose: 80 mg Ergocalciferol (Drisdol 50,000 Intl Units Cap) 1 cap PO MON RASHAUN Furosemide (Lasix) 20 mg IVP Q12 RASHAUN Last Admin: 05/30/16 22:06 Dose: Not Given Meropenem 1g/NS 100mL IVPB (Meropenem 1g/Ns 100ml Ivpb) 100 mls @ 100 mls/hr IVPB Q8 RASHAUN PRN Reason: Protocol Stop: 06/06/16 14:01 Last Admin: 05/30/16 21:57 Dose: 100 mls/hr Levalbuterol HCl (Xopenex) 0.63 mg IH [id number] RASHAUN Last Admin: 05/31/16 02:30 Dose: 0.63 mg Magnesium Oxide (Mag-Ox) 400 mg PO BID [facility] Last Admin: 05/30/16 17:34 Dose: 400 mg Metoprolol Tartrate (Lopressor) 25 mg PO BID [facility] Last Admin: 05/30/16 17:34 Dose: Not Given Pantoprazole Sodium (Protonix Ec Tab) 40 mg PO ACB [facility] Last Admin: 05/30/16 08:31 Dose: 40 mg Polyethylene Glycol (Miralax) 17 gm PO DAILY [facility] Last Admin: 05/30/16 09:43 Dose: Not Given Potassium Chloride (K-Dur 20 Meq Er Tab) 20 meq PO BID [facility] Last Admin: 05/30/16 17:34 Dose: 20 meq - Labs Labs: 05/30/16 06:30 05/30/16 06:30 PT 10.7 Seconds (9.9-11.8) 05/29/16 20:24 INR 0.99 (0.93-1.08) 05/29/16 20:24 APTT 25.4 Seconds (23.7-30.8) 05/29/16 20:24 - Constitutional Appears: Well, No Acute Distress - Head Exam Head Exam: ATRAUMATIC, NORMAL INSPECTION, NORMOCEPHALIC - Eye Exam Eye Exam: Normal appearance - ENT Exam ENT Exam: Normal External Ear Exam - Neck Exam Neck Exam: Normal Inspection - Respiratory Exam Respiratory Exam: NORMAL BREATHING PATTERN - Cardiovascular Exam Cardiovascular Exam: absent: JVD - GI/Abdominal Exam GI & Abdominal Exam: absent: Distended - Rectal Exam Rectal Exam: Deferred - Extremities Exam Extremities Exam: Normal Inspection - Back Exam Back Exam: NORMAL INSPECTION - Neurological Exam Neurological Exam: Alert, Oriented x3 - Psychiatric Exam Psychiatric exam: Normal Affect, Normal Mood - Skin Skin Exam: Normal Color Assessment and Plan - Assessment and Plan (Free Text) Assessment: A/P:Sinus tachycardia. Low blood pressure. NSTEMI. Sepsis. UTI? Lopressor 2.5 mg IV x 1.
[2016-05-31] MEDS: Enoxaparin 80 mg Syringe SC SCH ×2 (04:45→16:55)
[2016-05-31] MEDS: Meropenem 1g/NS 100mL IVPB 100 ML IVPB SCH ×3 (06:00→21:49)
[2016-05-31 07:06] LABS: ADD MANUAL DIFF? NO
[2016-05-31 07:24] LABS: BASO # 0.01 K/mm3 (0.0-2.0); BASO % 0.1 % (0.0-3.0); EOS # 0.1 (0.0-0.7); EOS % 1.2 % (1.5-5.0); GRAN # 6.66 (1.4-6.5); GRAN % 76.8 % (50.0-68.0); HEMATOCRIT 33.8 % (36.0-48.0); LYMPH # 1.1 (1.2-3.4); LYMPH % 12.4 % (22.0-35.0); MEAN CELL VOLUME 94.9 fL (80.0-105.0); MEAN CORPUSCULAR HEMOGLOBIN 31.7 pg (25.0-35.0); MEAN CORPUSCULAR HGB CONC 33.4 g/dl (31.0-37.0); MEAN PLATELET VOLUME 9.3 fl (7.0-11.0); MONO # 0.8 (0.1-0.6); MONO % 9.5 % (1.0-6.0); PLATELET COUNT 123 10^3/uL (120.0-450.0); RED CELL DISTRIBUTION WIDTH 12.8 % (11.5-14.5); WHITE BLOOD COUNT 8.7 10^3/ul (4.5-11.0)
[2016-05-31 07:30] LABS: ALKALINE PHOSPHATASE 141 U/L (38-133); ALT/SGPT 73 U/L (7-56); AST/SGOT 50 U/L (15-39); BILIRUBIN,DIRECT 0.6 mg/dL (0.0-0.4); BILIRUBIN,TOTAL 0.8 mg/dL (0.2-1.3); BLOOD UREA NITROGEN 11 mg/dL (7-21); CALCIUM 8.1 mg/dL (8.4-10.5); CARBON DIOXIDE 27 mmol/L (21-33); CHLORIDE 107 mmol/L (98-107); GFR AFRICAN-AMERICAN > 60; GLUCOSE,RANDOM 112 mg/dL (70-110); MAGNESIUM 2.3 mg/dL (1.7-2.2); POTASSIUM 4.4 mmol/L (3.6-5.0); SODIUM 139 mmol/L (132-148); TOTAL PROTEIN 6.5 g/dL (5.8-8.3)
[2016-05-31 07:36] LABS: TROPONIN I 0.05 ng/mL
--- NOTE | 2016-05-31 08:13 | PN ---
DATE: 05/31/2016 I examined the patient this morning. I also discussed this case with the nurse on the floor. Apparently, she had no major issues last night except for cardiac. I discussed this case in detail with Dr. De Souza yesterday. The MRCP without contrast was ordered yesterday and was completed. It is currently uninterpreted. PHYSICAL EXAMINATION: VITAL SIGNS: I reviewed this patient's vital signs. HEENT: Unable to be done. LUNGS: Decreased breath sounds at the bases. HEART: Irregular rhythm. ABDOMEN: Soft. No tenderness elicited. LABORATORY DATA: Pending for this morning. I reviewed the MRCP images this morning. Again, this is not interpreted by a radiologist as of yet. At least on preliminary evaluation, it appears that the bile duct is intact, no biliary strictures noted or major stones in the ducts. Evaluation of the pancreatic duct is problematic due to imaging quality. It appears at the very least, patient may have some degree of a stricture in the area of the mid and possibly 1 other stricture more proximal. Delineation of the cluster of grapes type small pseudocyst structures at the very end of the pancreas as the pancreatic tail is visualized, but unable to determine whether side branch of main branch. Further clarification of the images will be at the discretion of the radiologist later on this morning. OVERALL ASSESSMENT: This is an 81-year-old Stateless female, currently admitted with sepsis, possibly urinary tract related. The patient is currently on antibiotics and relatively asymptomatic from a gastrointestinal point of view. Based on the magnetic resonance cholangiopancreatography, which was not a contrast study, it is hard to make further recommendations based on a limited study. Note that this study was done without contrast due to possible issues related to nephrogenic fibrosis development. As indicated previously, I feel further delineation of pancreatic anatomy could be accomplished by extensive endoscopic ultrasound studies at a [facility]. 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 There is dilatation of the pancreatic duct, which coincides with a possible pancreatic stricture that I mentioned previously. Again, I feel that this patient needs extensive endoscopic ultrasound evaluation with cyst aspiration to check for intraductal papillary mucinous neoplasm. After endoscopic ultrasound evaluation, I think her prognosis and possible therapeutic options can be discussed in a more intelligent fashion since we will have more data available. I think since the patient is currently in a community hospital, one can offer this lady limited options related to this pancreatic issue. Ignacio Bowden DO, PhD cc: [id number] TT: 05/31/2016 08:13:01 Confirmation # [id number] Dictation # [id number] RITESH
[2016-05-31] MEDS: Pantoprazole 40 mg EC Tab PO SCH (08:17)
[2016-05-31] MEDS: Magnesium Oxide 400 mg Tab UD PO SCH ×2 (09:12→17:26)
[2016-05-31] MEDS: Potassium Chloride 20 mEq ER Tab PO SCH ×2 (09:12→17:27)
[2016-05-31] MEDS: POLYETHYLENE GLYCOL 3350 17 GM/Dose PACKET PO SCH (09:12)
--- NOTE | 2016-05-31 10:11 | MRI ---
PROCEDURE: Magnetic Resonance Cholangiopancreatography HISTORY: Follow-up to CT scan showing cystic pancreatic lesion COMPARISON: None available. TECHNIQUE: Multiplanar, multisequence MR images of the abdomen were obtained, including heavily T2 weighted MRCP images of the biliary system. Rotating maximum intensity projection images of the biliary system were generated. FINDINGS: MRCP: The common bile duct is of a normal caliber. No evidence of choledocholithiasis. No intrahepatic biliary ductal dilatation. LIVER: Unremarkable. GALLBLADDER: Unremarkable SPLEEN: Unremarkable. PANCREAS: There is a multiloculated cystic lesion in the tail of the pancreas that appears to be contiguous with and possibly communicate with the pancreatic duct. The pancreatic duct is enlarged and irregular in the pancreatic tail. Findings could represent a pancreatic pseudocyst. The differential diagnosis includes intraductal papillary mucinous tumor and serous or mucinous cystadenoma. The MRI findings are nonspecific. The lesion measures 6 cm in with by 4 cm height by 4.3 cm AP ADRENALS: Unremarkable. KIDNEYS: Unremarkable. AORTA: No aneurysm. ASCITES: None. OTHER FINDINGS: None. IMPRESSION: There is a multiloculated cystic lesion in the tail of the pancreas that appears to be contiguous with and possibly communicate with the pancreatic duct. The pancreatic duct is enlarged and irregular in the pancreatic tail. Findings could represent a pancreatic pseudocyst. The differential diagnosis includes intraductal papillary mucinous tumor and serous or mucinous cystadenoma. The MRI findings are nonspecific.
--- NOTE | 2016-05-31 11:55 | CP.PCM.PN ---
Subjective - Date & Time of Evaluation Date of Evaluation: 05/31/16 Time of Evaluation: 10:45 - Subjective Subjective: Patient is feeling better, but still had fever at 8PM last night. This morning the patient is afebrile. No nausea, no diarrhea, no good appetite, no abdominal pain. Objective - Vital Signs/Intake and Output Vital Signs (last 24 hours): Temp Pulse Resp BP Pulse Ox 99.7 F H 112 H 18 112/68 99 05/31/16 06:00 05/31/16 10:48 05/31/16 06:00 05/31/16 10:48 05/31/16 06:00 Intake and Output: 05/31/16 05/31/16 06:59 18:59 Intake Total 1810 Output Total 800 Balance 1010 - Medications Medications: Current Medications Acetaminophen (Tylenol 325mg Tab) 650 mg PO Q6H PRN PRN Reason: FOR TEMP>=99.5F Last Admin: 05/30/16 20:06 Dose: 650 mg Acetaminophen (Tylenol 650 Mg Supp) 650 mg RC Q6H PRN PRN Reason: TEMP>=99.5F Aspirin (Ecotrin) 81 mg PO DAILY [facility] Last Admin: 05/31/16 09:12 Dose: 81 mg Clopidogrel Bisulfate (Plavix) 75 mg PO DAILY [facility] Last Admin: 05/31/16 09:12 Dose: 75 mg Enoxaparin Sodium (Lovenox) 80 mg SC Q12H RASHAUN PRN Reason: Protocol Last Admin: 05/31/16 04:45 Dose: 80 mg Ergocalciferol (Drisdol 50,000 Intl Units Cap) 1 cap PO MON [facility] Furosemide (Lasix) 20 mg IVP Q12 [facility] Last Admin: 05/31/16 10:47 Dose: 20 mg Meropenem 1g/NS 100mL IVPB (Meropenem 1g/Ns 100ml Ivpb) 100 mls @ 100 mls/hr IVPB Q8 RASHAUN PRN Reason: Protocol Stop: 06/06/16 14:01 Last Admin: 05/30/16 21:57 Dose: 100 mls/hr Levalbuterol HCl (Xopenex) 0.63 mg IH [id number] [facility] Last Admin: 05/31/16 07:30 Dose: 0.63 mg Magnesium Oxide (Mag-Ox) 400 mg PO BID [facility] Last Admin: 05/31/16 09:12 Dose: 400 mg Metoprolol Tartrate (Lopressor) 25 mg PO BID [facility] Last Admin: 05/31/16 10:48 Dose: 25 mg Pantoprazole Sodium (Protonix Ec Tab) 40 mg PO ACB [facility] Last Admin: 05/31/16 08:17 Dose: 40 mg Polyethylene Glycol (Miralax) 17 gm PO DAILY [facility] Last Admin: 05/31/16 09:12 Dose: 17 gm Potassium Chloride (K-Dur 20 Meq Er Tab) 20 meq PO BID [facility] Last Admin: 05/31/16 09:12 Dose: 20 meq Verapamil HCl (Calan Tab) 40 mg PO TID [facility] Verapamil HCl (Verapamil Inj) 2.5 mg IVP Q6H PRN PRN Reason: FOR heart rate>140 - Labs Labs: 05/31/16 07:04 05/31/16 07:04 PT 10.7 Seconds (9.9-11.8) 05/29/16 20:24 INR 0.99 (0.93-1.08) 05/29/16 20:24 APTT 25.4 Seconds (23.7-30.8) 05/29/16 20:24 - Constitutional Appears: Non-toxic, No Acute Distress - Head Exam Head Exam: NORMAL INSPECTION - ENT Exam ENT Exam: Mucous Membranes Moist - Neck Exam Neck Exam: absent: Lymphadenopathy, Meningismus - Respiratory Exam Respiratory Exam: Decreased Breath Sounds - Cardiovascular Exam Cardiovascular Exam: +S1, +S2 - GI/Abdominal Exam GI & Abdominal Exam: Soft. absent: Tenderness Assessment and Plan - Assessment and Plan (Free Text) Plan: Assessment sepsis secondary to gram negative bacilli bacteremia, consider secondary to urinary tract infection, slowly improving Lesions in the HTN degenerative joint disease GERD history of diverticulosis obesity with BMI 34 Plan continue Meropenem day 2 pending identification and sensitivities of the gram negative bacilli in the blood; follow up urine cx Will continue to monitor clinical response and trend fever curve
--- NOTE | 2016-05-31 12:13 | CARD ---
APPROVED REPORT EKG Measurement Heart [id number] <Conclusion> Atrial fibrillation with rapid ventricular response with premature ventricular or aberrantly conducted complexes Abnormal ECG
--- NOTE | 2016-05-31 13:08 | PN ---
DATE: 05/31/2016 REASON FOR DICTATION: Covering Dr. Malik Lamb. REASON FOR CONSULTATION: Hypotensive, sepsis, cardiac evaluation, SVT, paroxysmal atrial fibrillatio n with rapid ventricular rate. BRIEF CLINICAL HISTORY: This is an 81-year-old female with a past medical history significant for hy pertension, arrhythmia, anemia, coronary artery disease, diabetes, diverticular colonic disease. Adm itted after having low grade fever, chills, lethargic. Family is at the bedside. The patient denies any chest pain, shortness of breath, any palpitation. The patient went into twice heart rate AFib w ith rapid ventricular rate, 140. Verapamil was given. Heart rate slowed down. Denies any chest ze n, shortness of breath, any palpitation now. PHYSICAL EXAMINATION: VITAL SIGNS: Temperature afebrile, heart rate 112, temperature afebrile, blood pressure 112/68. HEENT: PERRLA. Extraocular muscles intact. NECK: Supple. No carotid bruit. No thyromegaly. CHEST: Clear to auscultation. HEART: S1, S2 regular. ABDOMEN: Soft. EXTREMITIES: Clubbing, cyanosis negative. BLOOD WORKUP: WBC 8.3, hemoglobin 11.3, hematocrit 33.8, platelet count 123. Chemistry shows sodium 139, potassium 4.4, chloride 107, carbon dioxide 23, anion gap of 9, BUN 11, creatinine 0.8. Tropon in 0.05. Total protein 6.5, albumin 3.5, albumin/globulin ratio 1. First troponin 0.18, second trop onin 0.13, repeat troponin is 0.05. IMPRESSION: Supraventricular tachycardia, paroxysmal atrial fibrillation, diabetes, hypertension, hy perlipidemia, obesity, body mass index 33.8 kg/meters squared, history of cardiac catheterization 09/2015 that revealed 70% stenosis small ramus, preserved left ventricular function, medically treated , decision was made to treat medically by Dr. Lamb. Last echo 04/25/2015 shows ejection fraction pres erved. RECOMMENDATION: Continue IV fluid. Echo to assess left ventricular function. Follow up CPK, tropon in trending. Possibly, this bump in troponin is secondary to hemodynamic instability and hypotension and tachycardia. The patient came in with blood pressure 83/45 and fever of 101 and heart rate at o ne point was 140. The patient is already on Lovenox. Will continue to follow. We will put verapami l 40 mg 3 times a day to control supraventricular tachycardia. Transfer care tomorrow to Dr. Malik peter. Further recommendation, catheterization versus medical treatment, will be decided by the hospit al course. We will follow with you. John Delong MD cc: [id number] TT: 05/31/2016 13:07:57 Confirmation # [id number] Dictation # [id number]
--- NOTE | 2016-05-31 16:23 | PN ---
DATE: 05/31/2016 The patient is seen lying in the bed in room 263, bed 1. The patient's daughter is at bedside. 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 The patient currently is getting nebulizer treatment. OBJECTIVE: VITAL SIGNS: T-max is 101.6. Telemetry shows atrial fibrillation, heart rate in low 100s to mid 100s. VITAL SIGNS: Blood pressure 112/68. Respirations 18, O2 sat is 99-94%. HEAD: Normocephalic, atraumatic. HEENT: Shows pink conjunctivae, anicteric sclerae. No oropharyngeal lesion. NECK: No neck rigidity. CHEST: Kyphosis. LUNGS: Shows occasional rhonchi bilaterally. CARDIOVASCULAR: Shows S1, S2, regular rhythm, positive questionable systolic murmur left sternal border, right second intercostal space. ABDOMEN: Protuberant, positive bowel sounds. GENITALIA: Female. RECTAL: Deferred. EXTREMITIES: Shows no pitting edema, no calf tenderness, no Homans' sign. NEUROLOGIC: The patient is alert, awake, responsive, is able to move upper and lower extremities without assistance. MUSCULOSKELETAL: Shows a body mass index of 34. Cranial nerves II-XII intact. PSYCHIATRIC: Negative. NEUROLOGIC: Without any gross deficit. Gait examination not tested. DIAGNOSTICS: 05/31: WBC 8.7, hemoglobin and hematocrit of 11.3 and 34, platelets 123, granulocytes 77%. Chemistry: Sodium 139, potassium 4.4, chloride 107, CO2 of 27, anion gap 9, BUN 13, creatinine 0.8, GFR greater than 60, glucose 112, fructosamine is 177, which is low. Lactic acid 1.1. Uric acid was 3.9, magnesium 2.3. LFTs shows AST is down to 50 from 108, ALT is down to 73 from 99, alkaline phosphatase is down to 141 from 157, a peak troponin is 0.4 down to 0.18, down to 0.18, down to 0.13, down to 0.05. Vitamin D is 26. Cholesterol 86, LDL less than 30. Microbiology cultures gram-negative jodi, blood cultures gram-negative jodi. The patient's MRCP, which was ordered by the ripsawyer was reviewed and explained to the patient and the patient's daughter at length and all questions and concerns answered. The patient's EKG and echocardiogram report were noted. Echocardiogram report is noted. EKG shows atrial fibrillation with rapid ventricular response, ST-T changes. IMPRESSION AND PLAN: 1. Gram-negative jodi bacteremia and urinary tract infection. 2. Questionable and possible septic versus cardiogenic shock. 3. Gram-negative bacteremia and urinary tract infection. 4. Hypotension. 5. Paroxysmal atrial fibrillation with rapid ventricular response. 6. High grade fever. 7. Transient hypoxemia. 8. Obesity with elevated body mass index of 34. 9. Leukocytosis with granulocytosis. 10. Normocytic anemia. 11. Transaminitis secondary to acute myocardial infarction. 12. Questionable diastolic congestive heart failure with elevated BNP. 13. Acute non-ST elevation myocardial infarction. 14. Hypovitaminosis D. 15. Hyperprocalcitoninemia of greater than 14. 16. Gram-negative jodi urinary tract infection with proteinuria, hematuria, pyuria, bacteriuria. 17. Atrial fibrillation with rapid ventricular response. 18. Pancreatic tail multilobulated cystic lesion contiguous and communicating with the pancreatic duct with dilated and irregular pancreatic duct possibly representing pancreatic pseudocyst. 19. Sepsis secondary to gram-negative bacilli bacteremia secondary to urinary tract infection. 18. Morbid obesity. 19. Deconditioning. 20. Gait dysfunction. 21. Paroxysmal atrial fibrillation with paroxysmal supraventricular tachycardia. 22. Single vessel coronary artery disease. 23. Questionable and possible acute [id number] myocardial infarction with elevated troponin versus demand ischemia. 24. Deconditioning. 25. Gait dysfunction. 26. Paroxysmal supraventricular tachycardia. 27. Left ventricular ejection fraction of 74% with mild concentric left ventricular hypertrophy. 28. Sepsis. 29. Gram-negative jodi bacteremia, sepsis and urinary tract infection. 30. Hypovitaminosis D. 31. Hyperprocalcitoninemia. 32. Hyperglycemia. 33. Hypokalemia. 34. Constipation. 1. Questionable septic versus cardiogenic shock with high-grade fever and lactic acidosis. 2. Paroxysmal supraventricular tachycardia. 3. Acute non-ST elevation myocardial infarction. 4. Hypotension...Hypotension probably secondary to acute non-ST elevation myocardial infarction versus cardiogenic shock, versus septic shock. 5. Paroxysmal supraventricular tachycardia. 6. Transient hypotension. 7. High-grade fever of 104. 8. Granulocytosis. 9. Normocytic anemia. 10. Lactic acidosis. 11. Acute non-ST elevation myocardial infarction with elevated troponin. 12. Transaminitis. 13. Hyperglycemia with history of prediabetes. 14. Questionable urinary tract infection with proteinuria, microscopic hematuria , pyuria, bacteriuria. 15. Bilateral perinephric stranding, etiology undetermined. 16. Questionable pancreatic tail cystic mass with dilated pancreatic duct of 8 mm. 17. Bilateral perinephric stranding. 18. Right adrenal subcentimeter hypoattenuating lesion. 19. Fecal retention with constipation. 20. Lumbar vertebrae sclerosis, punctate sclerosis. 21. Questionable pyelonephritis with urinary tract infection. 22. Right middle lobe atelectasis. 23. Bibasilar opacities versus infiltrate, versus pneumonia, versus congestive heart failure. 24. Left lower lobe consolidation. 25. Degenerative joint disease of the spine. 26. Questionable healthcare-associated versus community-acquired pneumonia. 27. Mild cardiomegaly and pulmonary vascular congestion, probably volume overload secondary to IV fluid resuscitation. 28. Hetrogen...Hepatic heterogeneity. 29. Paroxysmal supraventricular tachycardia. 30. Transient hypotension. PLAN: At this time, the patient is to be continued on telemetry. Serial labs ordered, repeat blood and urine cultures ordered. CONSULTATIONS: 1. Cardiology. 2. Gastroenterology. 3. Infectious disease. 4. Referral to TCU ordered. 5. The patient is started on verapamil, Calan 40 mg 3 times a day. 6. Drisdol 50,000 weekly. 7. Ecotrin 81 daily. 8. K-Dur is started on 20 mEq twice a day. 9. Lasix 20 mg IV q. 12. 10. Lopressor 25 mg twice a day. 12. Lovenox 80 mg q. 12. 13. Magnesium oxide 400 twice a day. 14. Meropenem 1 g IV q. 8. 15. MiraLax 17 grams daily. 16. Plavix was given 300 mg yesterday. 17. Plavix 75 mg daily. 18. Protonix 40 mg daily. 19. Tylenol 650 q. 6 p.r.n. The patient received 2 doses of IV verapamil today this morning of 2.5 for PSVT. The patient is started on p.r.n., verapamil 2.5 mg q. 6 hours p.r.n., vitamin D3 at 2000 units daily, Xopenex nebulizer every 6 hours. Repeat stat EKG ordered, repeat daily EKG ordered. Heart healthy diet, out of bed, AG stockings, SCDs, physical therapy, occupational therapy ordered. The patient's condition, diagnosis, treatment plan, management plan, all test results, diagnostic data, recommendation by all physicians involved in the care of the patient was discussed and explained to the patient's daughter, Nasrin Irvin at length and all questions and concerns answered. Dictated and electronically signed not read. Abran De Souza MD cc: [id number] TT: 05/31/2016 16:23:20 Confirmation # [id number] Dictation # [id number] mn RITESH
[2016-06-01] MEDS: Levalbuterol 0.63 MG/3 ML Inhal Soln UD IH SCH ×4 (01:47→19:46)
[2016-06-01] MEDS: Enoxaparin 80 mg Syringe SC SCH ×2 (04:55→17:47)
--- NOTE | 2016-06-01 06:05 | PN ---
DATE: 06/01/[address] Jose Eduardo Murray, who is still on vacation. SUBJECTIVE: I reviewed the respective progress notes, of the patient over the past 24 hours. Overall, the patient appears to be comfortable, still having periodic cardiac issues, but no complaints of abdominal pain. I reviewed Dr. De Souza's note in detail. As indicated in my note yesterday, after interpretation of the MRCP, it appears the patient may have at least 1 pancreatic stricture. 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 Again, this is worrisome especially in the setting of a dilated pancreatic duct. As indicated previously, I feel this patient would be better served to be evaluated from a GI standpoint a [facility] facility, in this particular scenario, because extensive endoscopic ultrasound evaluation with fine needle aspiration to rule out tumors. Again, the therapeutic options will be offered based on more complete data which could be obtained after the above studies. Ignacio Bowden DO, PhD cc: [id number] TT: 06/01/2016 06:05:10 Confirmation # [id number] Dictation # [id number] AWAD
[2016-06-01 06:58] LABS: ADD MANUAL DIFF? NO
[2016-06-01 07:22] LABS: ALKALINE PHOSPHATASE 162 U/L (38-133); ALT/SGPT 54 U/L (7-56); AST/SGOT 38 U/L (15-39); BASO # 0.03 K/mm3 (0.0-2.0); BASO % 0.4 % (0.0-3.0); BILIRUBIN,DIRECT 0.4 mg/dL (0.0-0.4); BILIRUBIN,TOTAL 0.6 mg/dL (0.2-1.3); BLOOD UREA NITROGEN 11 mg/dL (7-21); CALCIUM 8.5 mg/dL (8.4-10.5); CARBON DIOXIDE 25 mmol/L (21-33); CHLORIDE 108 mmol/L (98-107); EOS # 0.1 (0.0-0.7); EOS % 1.7 % (1.5-5.0); GFR AFRICAN-AMERICAN > 60; GLUCOSE,RANDOM 92 mg/dL (70-110); GRAN # 4.71 (1.4-6.5); GRAN % 68.3 % (50.0-68.0); HEMATOCRIT 32.2 % (36.0-48.0); LYMPH # 1.3 (1.2-3.4); LYMPH % 18.6 % (22.0-35.0); MAGNESIUM 2.3 mg/dL (1.7-2.2); MEAN CELL VOLUME 93.9 fL (80.0-105.0); MEAN CORPUSCULAR HEMOGLOBIN 31.5 pg (25.0-35.0); MEAN CORPUSCULAR HGB CONC 33.5 g/dl (31.0-37.0); MEAN PLATELET VOLUME 9.5 fl (7.0-11.0); MONO # 0.8 (0.1-0.6); PLATELET COUNT 162 10^3/uL (120.0-450.0); RED CELL DISTRIBUTION WIDTH 12.7 % (11.5-14.5); SODIUM 142 mmol/L (132-148); TOTAL PROTEIN 6.7 g/dL (5.8-8.3); WHITE BLOOD COUNT 6.9 10^3/ul (4.5-11.0)
[2016-06-01 07:33] LABS: TROPONIN I 0.03 ng/mL
--- NOTE | 2016-06-01 09:09 | PN ---
DATE: 06/01/2016 CARDIOLOGY FOLLOWUP The patient is in a chair eating without shortness of breath, without chest pain. PHYSICAL EXAMINATION: VITAL SIGNS: Blood pressure is 109/65. The heart rate is 102, sinus rhythm. NECK: Negative JVD. LUNGS: Without rales. HEART: Reveals S1, S2. EXTREMITIES: Without edema. EKG is unremarkable. LABORATORY DATA: The troponins are down to 0.03 from 0.13. The hemoglobin is 10.8 with a white coun t of 6.9. IMPRESSION: 1. Sepsis. 2. Transient atrial fibrillation, in which the patient is back in normal sinus rhythm. 3. Non-ST elevation myocardial infarction secondary to sepsis. 4. History of coronary artery disease with a 70% stenosis in a small ramus intermedius. 5. Hypercholesterolemia. 6. Hypertension. Given these findings, we will increase her beta-blockers to 50 b.i.d. She will continue on IV antibi otics. Given these findings, we will treat her infection. As long as the patient is asymptomatic from a car diac perspective, we will arrange for an outpatient stress test. Malik Lamb MD cc: [id number] TT: 06/01/2016 09:08:25 Confirmation # [id number] Dictation # [id number] sam
[2016-06-01 09:22] LABS: IRON 60 ug/dL (45-180)
[2016-06-01] MEDS: Potassium Chloride 20 mEq ER Tab PO SCH ×2 (09:35→17:47)
[2016-06-01] MEDS: POLYETHYLENE GLYCOL 3350 17 GM/Dose PACKET PO SCH (09:36)
[2016-06-01] MEDS: Magnesium Oxide 400 mg Tab UD PO SCH ×2 (09:36→17:47)
[2016-06-01] MEDS: Pantoprazole 40 mg EC Tab PO SCH (09:37)
--- NOTE | 2016-06-01 09:58 | CARD ---
APPROVED REPORT EKG Measurement Heart [id number] <Conclusion> Normal sinus rhythm Prolonged QT LAD C/W ECG 05/31/16: AF no longer present and the QTc is prolonged
[2016-06-01] MEDS ORDERED: Ergocalciferol 50,000 Intl Units Cap PO SCH (10:00)
--- NOTE | 2016-06-01 12:22 | PN ---
DATE: 06/01/2016 The patient is seen in room 263, bed 1. The patient is looking and appearing much better. The patient appears to be much pepped up. The patient is lying in the bed with the patient's daughter (Tsering) at bedside. Overnight nurse's notes were reviewed. No adverse events documented. PHYSICAL EXAMINATION: VITAL SIGNS: T-max is down to 99.6 from 104. Telemetry shows atrial fibrillation, heart rate in 70s and 80s, blood pressure is 119/65. Yesterday, blood pressure was episodically 98/60, 112/62. Respirations 17, O2 sat 95-99%. INTAKE AND OUTPUT: Output is 1000. HEAD: Normocephalic, atraumatic. EENT: Shows pinkish, pale conjunctivae; anicteric sclerae. No oropharyngeal lesions. No neck rigidity. CHEST: Kyphosis. LUNGS: Show no rales, crackles or wheezing. CARDIOVASCULAR: S1, S2 irregular rhythm. Positive systolic murmur right second intercostal space, left sternal border, left second intercostal space. ABDOMEN: Protuberant. Positive bowel sounds. GENITALIA: Female. EXTREMITIES: Show no pitting edema, no calf tenderness, no Homans sign. AG stockings are missing despite my orders. MUSCULOSKELETAL: Shows a body mass index of 33. CRANIAL NERVES: II-XII intact, limited. GAIT: Not tested. The patient is able to stand up without assistance. PSYCHIATRIC: Negative for anxiety. Negative for depression. Negative for auditory or visual hallucination. Negative for suicidal or homicidal ideation. DIAGNOSTICS: 06/01/2016: WBC 6.9, hemoglobin and hematocrit 10.8 and 32.2, platelet 162. Granulocytes 168. Sodium 142, potassium 4.0, chloride 108, CO2 25, anion gap 13, BUN 11, creatinine 0.7, GFR greater than 60, glucose 92; hemoglobin A1c 5.9, which is prediabetic range; magnesium 2.3. Iron is low normal at 60, iron saturation is low at 24. LFTs are trending downward with AST down to 38 from 108, ALT is down to 54 from 99, alkaline phosphatase is down to 162 but still elevated. Troponin is down to 0.03 from a peak troponin of 0.24. LFTs are . Urine culture and blood cultures are growing Escherichia coli which is pansensitive and negative for ESBL. The patient's MRCP was reviewed. The patient's today's EKG was reviewed which shows sinus rhythm, left axis deviation. The patient is no longer in AFib. The patient's EKG from yesterday at 2 p.m. shows sinus rhythm, S wave in III, ST -T changes. Echocardiogram report is reviewed. EF of 74%. IMPRESSION: 1. Septic versus questionable cardiogenic shock. 2. Paroxysmal atrial fibrillation converting to normal sinus rhythm. 3. Atrial fibrillation with rapid ventricular response. 4. Znm-LU-tpbsmymth myocardial infarction with elevated troponin. 5. Single vessel coronary artery disease with 70% stenosis of the ramus intermedius. 6. Atrial fibrillation with rapid ventricular response. 7. Left axis deviation. 8. Paroxysmal supraventricular tachycardia. 9. Pancreatic tail multilobulated cystic lesion contiguous and possibly communicating with pancreatic duct, with enlargement of the pancreatic duct and irregular pancreatic tail, possibly representing pancreatic pseudocyst versus intraductal papillary mucinous tumor and serous or mucinous cystadenoma. 10. Mild bilateral left perinephric stranding with prominent lowery with enhancement of the ureters. 11. Nonspecific right renal subcentimeter hypoattenuating lesion. 12. Fecal retention, constipation and fecal stasis. 13. Bilateral perinephric stranding, left more than the right, with bilateral prominent ureteral wall enhancement, possible questionable pyelonephritis versus infectious inflammatory process. 14. Bibasilar atelectasis and right midlung plate atelectasis. 15. Bibasilar opacities versus infiltrate. 16. Possible left lower lobe small consolidation. 17. 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 18. Left ventricular ejection fraction of 75%. 19. Mild concentric left ventricular hypertrophy. 20. History of dyslipidemia. 21. High grade fever. 22. Atrial fibrillation with rapid ventricular response. 23. Hypotension. 24. Escherichia coli urinary tract infection and sepsis and bacteremia and urinary tract infection. 25. Escherichia coli sepsis, bacteremia and urinary tract infection. 26. Questionable and possible pancreatic stricture. 27. Normocytic anemia with granulocytosis and leukocytosis. 28. Prediabetes. 29. Hypovitaminosis D. 30. Possible iron deficiency with decreased iron, decreased iron saturation. 31. Hyperprocalcitoninemia. 32. Escherichia coli urinary tract infection with proteinuria, microscopic hematuria, pyuria, bacteriuria. 33. Lactic acidosis. 1. Gram-negative jodi bacteremia and urinary tract infection. 2. Questionable and possible septic versus cardiogenic shock. 3. Gram-negative bacteremia and urinary tract infection. 4. Hypotension. 5. Paroxysmal atrial fibrillation with rapid ventricular response. 6. High grade fever. 7. Transient hypoxemia. 8. Obesity with elevated body mass index of 34. 9. Leukocytosis with granulocytosis. 10. Normocytic anemia. 11. Transaminitis secondary to acute myocardial infarction. 12. Questionable diastolic congestive heart failure with elevated BNP. 13. Acute non-ST elevation myocardial infarction. 14. Hypovitaminosis D. 15. Hyperprocalcitoninemia of greater than 14. 16. Gram-negative jodi urinary tract infection with proteinuria, hematuria, pyuria, bacteriuria. 17. Atrial fibrillation with rapid ventricular response. 18. Pancreatic tail multilobulated cystic lesion contiguous and communicating with the pancreatic duct with dilated and irregular pancreatic duct possibly representing pancreatic pseudocyst. 19. Sepsis secondary to gram-negative bacilli bacteremia secondary to urinary tract infection. 18. Morbid obesity. 19. Deconditioning. 20. Gait dysfunction. 21. Paroxysmal atrial fibrillation with paroxysmal supraventricular tachycardia. 22. Single vessel coronary artery disease. 23. Questionable and possible acute ivr-[id number]-bmnozhbee myocardial infarction with elevated troponin versus demand ischemia. 24. Deconditioning. 25. Gait dysfunction. 26. Paroxysmal supraventricular tachycardia. 27. Left ventricular ejection fraction of 74% with mild concentric left ventricular hypertrophy. 28. Sepsis. 29. Gram-negative jodi bacteremia, sepsis and urinary tract infection. 30. Hypovitaminosis D. 31. Hyperprocalcitoninemia. 32. Hyperglycemia. 33. Hypokalemia. 34. Constipation. 1. Questionable septic versus cardiogenic shock with high-grade fever and lactic acidosis. 2. Paroxysmal supraventricular tachycardia. 3. Acute non-ST elevation myocardial infarction. 4. Hypotension...Hypotension probably secondary to acute non-ST elevation myocardial infarction versus cardiogenic shock, versus septic shock. 5. Paroxysmal supraventricular tachycardia. 6. Transient hypotension. 7. High-grade fever of 104. 8. Granulocytosis. 9. Normocytic anemia. 10. Lactic acidosis. 11. Acute non-ST elevation myocardial infarction with elevated troponin. 12. Transaminitis. 13. Hyperglycemia with history of prediabetes. 14. Questionable urinary tract infection with proteinuria, microscopic hematuria , pyuria, bacteriuria. 15. Bilateral perinephric stranding, etiology undetermined. 16. Questionable pancreatic tail cystic mass with dilated pancreatic duct of 8 mm. 17. Bilateral perinephric stranding. 18. Right adrenal subcentimeter hypoattenuating lesion. 19. Fecal retention with constipation. 20. Lumbar vertebrae sclerosis, punctate sclerosis. 21. Questionable pyelonephritis with urinary tract infection. 22. Right middle lobe atelectasis. 23. Bibasilar opacities versus infiltrate, versus pneumonia, versus congestive heart failure. 24. Left lower lobe consolidation. 25. Degenerative joint disease of the spine. 26. Questionable healthcare-associated versus community-acquired pneumonia. 27. Mild cardiomegaly and pulmonary vascular congestion, probably volume overload secondary to IV fluid resuscitation. 28. Hetrogen...Hepatic heterogeneity. 29. Paroxysmal supraventricular tachycardia. 30. Transient hypotension. PLAN: At this time, patient is seen by cardiology, gastroenterology ____. Their recommendations are noted and explained to the patient and the patient's daughter in layman's language, which they acknowledged and understand. The patient was seen by cardiology today. Beta pricila was increased to 50 b.i.d. Cardiology recommends outpatient stress testing. At present, patient has been ordered serial labs. Repeat blood and urine culture reports are pending. CURRENT CONSULTATIONS: 1. Cardiology 2. Gastroenterology. 3. ____ MEDICATIONS: The patient is on: 1. Verapamil (Calan) 40 mg 3 times a day. 2. Drisdol 50,000 weekly. 3. Ecotrin 81 mg daily. 4. Venofer 200 mg x 1 dose. 5. K-Dur 20 mEq twice a day. 6. The patient is on Lasix 20 IV q. 12. 7. Lopressor 50 mg twice a day. 8. Lovenox 80 mg subQ q. 12. 9. Magnesium oxide 400 mg twice a day. 10. Meropenem 1 g IV q. 8. 11. MiraLax 17 grams daily. 12. Plavix 75 mg daily. 13. Protonix 40 mg daily. 14. Tylenol 650 p.o. suppository q. 6 p.r.n. for fever. 15. Vitamin D3 2000 international units daily. 16. Xopenex nebulizer 0.63 mg q. 6 hours. Out of bed, heart healthy diet, AG stockings, SCDs, physical therapy, occupational therapy ordered. The patient has been ordered TCU evaluation. Dictated and electronically signed; not read. Abran De Souza MD cc: [id number] TT: 06/01/2016 12:17:17 Confirmation # [id number] Dictation # [id number] mn 06/01/2016 11:20:38 RITESH
[2016-06-01] MEDS: Meropenem 1g/NS 100mL IVPB 100 ML IVPB SCH (13:00)
--- NOTE | 2016-06-01 16:33 | CARD ---
APPROVED REPORT EKG Measurement Heart [id number] <Conclusion> Atrial fibrillation with rapid ventricular response Abnormal ECG
--- NOTE | 2016-06-01 20:33 | PN ---
DATE: 06/01/2016 The patient is in bed in no acute distress, nontoxic. PHYSICAL EXAMINATION: VITAL SIGNS: Temperature is 98. Blood pressure is 119/70, respiratory rate of 16. HEENT: Unremarkable. NECK: Supple. LUNGS: Have decreased breath sounds. HEART: Normal S1, S2. ABDOMEN: Soft, nontender. LABORATORY DATA: Reveals E. coli in the blood, which is pansensitive including sensitive to Cipro. Escherichia coli in the urine, which is also the same pansensitive E. coli sensitive to Cipro. The patient has no known allergies and repeat blood cultures are negative. The patient's temperature now has been afebrile for more than 48 hours. ASSESSMENT AND PLAN: This is an 81-year-old who was admitted with sepsis secondary to Escherichia co li bacteremia secondary to Escherichia coli urinary tract infection which appears to be improving. C urrently on day #3 of meropenem. May switch to p.o. antibiotics when the patient is discharge. At t his time, will switch the ceftriaxone. However, may use p.o. antibiotics upon discharge. It is pans ensitive. Reviewing patient's EKG, revealed the patient to have a QTC of 502, which would be relativ e contraindication for quinoline use, may use p.o. Vantin 200 mg p.o. b.i.d. Total antibiotic therap y of 10 days. Hernan Fisher MD cc: [id number] TT: 06/01/2016 20:33:07 Confirmation # [id number] Dictation # [id number] sam
[2016-06-01 21:57] LABS: FOLATE > 20.0 ng/mL
[2016-06-01 22:58] LABS: URINE BILIRUBIN NEGATIVE (NEGATIVE); URINE BLOOD SMALL (NEGATIVE); URINE GLUCOSE (UA) NEGATIVE (NEGATIVE); URINE KETONE NEGATIVE (NEGATIVE); URINE LEUKOCYTE ESTERASE NEGATIVE Leu/uL (NEGATIVE); URINE PROTEIN NEGATIVE mg/dL (<30 mg/dL); URINE UROBILINOGEN 0.2 E.U./dL (<1 E.U./dL)
[2016-06-01 22:59] LABS: URINE APPEARANCE CLEAR (CLEAR); URINE COLOR YELLOW (YELLOW)
[2016-06-01 23:31] LABS: URINE EPITHELIAL CELLS 0 - 2 /hpf (0-5); URINE WBC 0 - 2 /hpf (0-6)
[2016-06-02] MEDS: Levalbuterol 0.63 MG/3 ML Inhal Soln UD IH SCH ×3 (01:59→13:10)
[2016-06-02] MEDS: Enoxaparin 80 mg Syringe SC SCH (04:55)
[2016-06-02 06:39] LABS: HEMATOCRIT 33.4 % (36.0-48.0); MEAN CELL VOLUME 94.1 fL (80.0-105.0); MEAN CORPUSCULAR HEMOGLOBIN 31.3 pg (25.0-35.0); MEAN CORPUSCULAR HGB CONC 33.2 g/dl (31.0-37.0); MEAN PLATELET VOLUME 9.3 fl (7.0-11.0); PLATELET COUNT 198 10^3/uL (120.0-450.0); RED CELL DISTRIBUTION WIDTH 12.6 % (11.5-14.5); WHITE BLOOD COUNT 7.4 10^3/ul (4.5-11.0)
[2016-06-02 06:42] VITALS: BP 119/75; RESP 18; TEMP 98; O2SAT 96
[2016-06-02 06:45] LABS: ADD MANUAL DIFF? YES
[2016-06-02 06:49] LABS: ALKALINE PHOSPHATASE 213 U/L (38-133); ALT/SGPT 65 U/L (7-56); AST/SGOT 57 U/L (15-39); BILIRUBIN,DIRECT 0.4 mg/dL (0.0-0.4); BILIRUBIN,TOTAL 0.5 mg/dL (0.2-1.3); BLOOD UREA NITROGEN 12 mg/dL (7-21); CALCIUM 9.2 mg/dL (8.4-10.5); CARBON DIOXIDE 26 mmol/L (21-33); CHLORIDE 105 mmol/L (95-110); GFR AFRICAN-AMERICAN > 60; GLUCOSE,RANDOM 90 mg/dL (70-110); MAGNESIUM 2.2 mg/dL (1.7-2.2); POTASSIUM 4.4 mmol/L (3.6-5.0); SODIUM 139 mmol/L (132-148)
--- NOTE | 2016-06-02 08:06 | PN ---
DATE: 06/02/2016 I reviewed the respective notes for this patient including the progress notes of Dr. Wright, Dr. Lamb, Dr. De Souza, as well as Dr. Fisher. 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 Again , there was a question on my review of the MRCP of a possible mid pancreatic duct stricture corresponding to the dilated pancreatic duct. This was not mentioned by radiology. Note that clarification of the origin of pseudocyst has to be facilitated by EUS with FNA drainage in this particular case. Again, the location of pseudocyst has prognostic implications. The MRCP was not helpful in this particular case. From all intents and purposes, the patient is asymptomatic from pancreatitis point of view. Again, this evaluation should be accomplished at a university facility on an outpatient basis. To clarify the issue, one can order a CA 19-9 in this particular case. However, even if the CA 19-9, which is a tumor marker for pancreatic cancer, is negative, it does not rule out the possibility of an IPMN which can be seen better with the use of EUS evaluation. Note that this is not a simple task in this particular patient. 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 For the most part, right now the patient's main clinical issue is cardiac and she is being followed by Dr. Lamb as well as Dr. Fisher for sepsis issues. Ignacio Bowden DO, PhD cc: [id number] TT: 06/02/2016 08:06:30 Confirmation # [id number] Dictation # [id number] sarah AWAD
[2016-06-02] MEDS: Pantoprazole 40 mg EC Tab PO SCH (08:35)
--- NOTE | 2016-06-02 08:39 | PN ---
DATE: 06/02/2016 The patient is asymptomatic. No shortness of breath, no chest pain. She is eating well. PHYSICAL EXAMINATION: VITAL SIGNS: Blood pressure is 119/75, heart rate is in the 60s-80s, normal sinus rhythm. NECK: Negative JVD. LUNGS: Without rales. HEART: Reveals S1, S2. EXTREMITIES: Without edema. LABORATORY DATA: The hemoglobin is 11.1. Chemistries are unremarkable. IMPRESSION: 1. Psx-XL-mcacqfvdo myocardial infarction likely due to transient hypotension. 2. Transient atrial fibrillation, which the patient is back to normal sinus rhythm. 3. History of coronary artery disease in the past. 4. Hypercholesterolemia. 5. Hypertension. 6. Sepsis. 7. Pancreatitis. PLAN: Given these findings, the patient is tolerating increase in beta blockers. We will discontinue telemetry today. Malik Lamb MD cc: [facility] TT: 06/02/2016 08:38:38 Confirmation # [id number] Dictation # [id number] sarah
[2016-06-02] MEDS: Magnesium Oxide 400 mg Tab UD PO SCH (09:06)
[2016-06-02] MEDS: POLYETHYLENE GLYCOL 3350 17 GM/Dose PACKET PO SCH (09:06)
[2016-06-02] MEDS: Potassium Chloride 20 mEq ER Tab PO SCH (09:06)
[2016-06-02 09:09] VITALS: PULSE 62
[2016-06-02 09:42] LABS: NEUTROPHIL 52 % (50.0-70.0)
[2016-06-02 09:43] LABS: ANISOCYTOSIS 1+; ATYPICAL LYMPHOCYTE 3 % (0.0-0.0); EOSINOPHIL 1 % (0.0-3.0); HYPOCHROMIA 1+; PLATELET ESTIMATE NORMAL (NORMAL)
--- NOTE | 2016-06-02 09:45 | CARD ---
APPROVED REPORT EKG Measurement Heart [id number] <Conclusion> Normal sinus rhythm Leftward axis Mildly prolonged QTC
--- NOTE | 2016-06-02 10:37 | PN ---
DATE: 06/02/2016 The patient is seen in room 263, bed 2. The patient is lying in the bed. The patient's daughter is at bedside. Overnight nurse's notes were reviewed. No adverse event documented. PHYSICAL EXAMINATION: VITAL SIGNS: T-max is 98.2. Telemetry shows sinus rhythm, paroxysmal atrial fibrillation, heart rate in 70s and 80s. Blood pressure is ranging in 120s/190 systolic, diastolic and 75, respirations 18. O2 sat is 96-97%. OUTPUT: 1000+400. HEAD: Normocephalic, atraumatic. HEENT: Shows pinkish conjunctivae, anicteric sclerae. No oropharyngeal lesion. NECK: No neck rigidity. CHEST: Kyphosis. LUNGS: Show no rales, crackles, or wheezing. CARDIOVASCULAR: Shows S1, S2, regular rhythm. ABDOMEN: Soft, positive bowel sounds. GENITALIA: Female. RECTAL: Deferred. EXTREMITIES: Shows positive AG stockings. No clubbing, no cyanosis, no pitting edema, no calf tenderness, no Homans' sign. NEUROLOGIC: The patient is alert, awake, and oriented x 3. Cranial nerves II- XII intact. GAIT: Not tested. PSYCHIATRIC: Negative for anxiety, depression. Negative for auditory hallucination. Negative for suicidal or homicidal ideation. MUSCULOSKELETAL: Body mass index is 32. DIAGNOSTICS: 06/02 - WBC 7.4, hemoglobin and hematocrit 11.1 and 34.4, platelets 198. Sodium 139, potassium 4.4, chloride 105, CO2 of 26, anion gap 12. BUN 12, creatinine 0.7. GFR greater than 60. Glucose 90, calcium 9.2, magnesium 2.2. Iron 60, TIBC 252, iron saturation 24. AST has gone up to 57 from 38. ALT has gone up to 65 from 54. Alk phos has gone up to 213. Repeat procalcitonin level is 10.53 from 14.2. B12 is 232. Folate is greater than 20. Blood and urine cultures are Escherichia coli. EKG shows sinus rhythm, questionable left axis deviation, T-wave inversion in lead 3. IMPRESSION AND PLAN: 1. Septic versus questionable cardiogenic shock. 2. Escherichia coli bacteremia, sepsis, and Escherichia coli urinary tract infection. 3. Paroxysmal atrial fibrillation converting to normal sinus rhythm ____. 4. Paroxysmal atrial fibrillation with rapid ventricular response. 5. Acute non-ST elevation myocardial infarction with elevated troponin. 6. History of single-vessel coronary artery disease with 70% stenosis of the ramus intermedius. 7. Paroxysmal supraventricular tachycardia and paroxysmal atrial fibrillation. 8. Transient hypoxemia. 9. Normocytic iron deficiency anemia with granulocytosis. 10. Lactic acidosis. 11. Prediabetes with hemoglobin A1c of 5.9. 12. Hyperglycemia with prediabetes. 13. Transaminitis. 14. Acute non-ST elevation myocardial infarction with elevated troponin. 15. Hyperprocalcitoninemia. 16. Vitamin B12 deficiency. 17. Persistent hyperprocalcitoninemia. 18. Escherichia coli urinary tract infection and Escherichia coli bacteremia and sepsis with proteinuria, microscopic hematuria, pyuria, bacteriuria. 19. Left axis deviation. 20. History of hypovitaminosis D. 21. Hypokalemia. 22. Hypomagnesemia. 23. Constipation. 24. Hypovitaminosis D. 1. Septic versus questionable cardiogenic shock. 2. Paroxysmal atrial fibrillation converting to normal sinus rhythm. 3. Atrial fibrillation with rapid ventricular response. 4. Ymd-FB-vosvyvqjy myocardial infarction with elevated troponin. 5. Single vessel coronary artery disease with 70% stenosis of the ramus intermedius. 6. Atrial fibrillation with rapid ventricular response. 7. Left axis deviation. 8. Paroxysmal supraventricular tachycardia. 9. Pancreatic tail multilobulated cystic lesion contiguous and possibly communicating with pancreatic duct, with enlargement of the pancreatic duct and irregular pancreatic tail, possibly representing pancreatic pseudocyst versus intraductal papillary mucinous tumor and serous or mucinous cystadenoma. 10. Mild bilateral left perinephric stranding with prominent lowery with enhancement of the ureters. 11. Nonspecific right renal subcentimeter hypoattenuating lesion. 12. Fecal retention, constipation and fecal stasis. 13. Bilateral perinephric stranding, left more than the right, with bilateral prominent ureteral wall enhancement, possible questionable pyelonephritis versus infectious inflammatory process. 14. Bibasilar atelectasis and right midlung plate atelectasis. 15. Bibasilar opacities versus infiltrate. 16. Possible left lower lobe small consolidation. 17. 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 18. Left ventricular ejection fraction of 75%. 19. Mild concentric left ventricular hypertrophy. 20. History of dyslipidemia. 21. High grade fever. 22. Atrial fibrillation with rapid ventricular response. 23. Hypotension. 24. Escherichia coli urinary tract infection and sepsis and bacteremia and urinary tract infection. 25. Escherichia coli sepsis, bacteremia and urinary tract infection. 26. Questionable and possible pancreatic stricture. 27. Normocytic anemia with granulocytosis and leukocytosis. 28. Prediabetes. 29. Hypovitaminosis D. 30. Possible iron deficiency with decreased iron, decreased iron saturation. 31. Hyperprocalcitoninemia. 32. Escherichia coli urinary tract infection with proteinuria, microscopic hematuria, pyuria, bacteriuria. 33. Lactic acidosis. 1. Gram-negative jodi bacteremia and urinary tract infection. 2. Questionable and possible septic versus cardiogenic shock. 3. Gram-negative bacteremia and urinary tract infection. 4. Hypotension. 5. Paroxysmal atrial fibrillation with rapid ventricular response. 6. High grade fever. 7. Transient hypoxemia. 8. Obesity with elevated body mass index of 34. 9. Leukocytosis with granulocytosis. 10. Normocytic anemia. 11. Transaminitis secondary to acute myocardial infarction. 12. Questionable diastolic congestive heart failure with elevated BNP. 13. Acute non-ST elevation myocardial infarction. 14. Hypovitaminosis D. 15. Hyperprocalcitoninemia of greater than 14. 16. Gram-negative jodi urinary tract infection with proteinuria, hematuria, pyuria, bacteriuria. 17. Atrial fibrillation with rapid ventricular response. 18. Pancreatic tail multilobulated cystic lesion contiguous and communicating with the pancreatic duct with dilated and irregular pancreatic duct possibly representing pancreatic pseudocyst. 19. Sepsis secondary to gram-negative bacilli bacteremia secondary to urinary tract infection. 18. Morbid obesity. 19. Deconditioning. 20. Gait dysfunction. 21. Paroxysmal atrial fibrillation with paroxysmal supraventricular tachycardia. 22. Single vessel coronary artery disease. 23. Questionable and possible acute aqt-RE-bpnaorlar myocardial infarction with elevated troponin versus demand ischemia. 24. Deconditioning. 25. Gait dysfunction. 26. Paroxysmal supraventricular tachycardia. 27. Left ventricular ejection fraction of 74% with mild concentric left ventricular hypertrophy. 28. Sepsis. 29. Gram-negative jodi bacteremia, sepsis and urinary tract infection. 30. Hypovitaminosis D. 31. Hyperprocalcitoninemia. 32. Hyperglycemia. 33. Hypokalemia. 34. Constipation. 1. Questionable septic versus cardiogenic shock with high-grade fever and lactic acidosis. 2. Paroxysmal supraventricular tachycardia. 3. Acute non-ST elevation myocardial infarction. 4. Hypotension...Hypotension probably secondary to acute non-ST elevation myocardial infarction versus cardiogenic shock, versus septic shock. 5. Paroxysmal supraventricular tachycardia. 6. Transient hypotension. 7. High-grade fever of 104. 8. Granulocytosis. 9. Normocytic anemia. 10. Lactic acidosis. 11. Acute non-ST elevation myocardial infarction with elevated troponin. 12. Transaminitis. 13. Hyperglycemia with history of prediabetes. 14. Questionable urinary tract infection with proteinuria, microscopic hematuria , pyuria, bacteriuria. 15. Bilateral perinephric stranding, etiology undetermined. 16. Questionable pancreatic tail cystic mass with dilated pancreatic duct of 8 mm. 17. Bilateral perinephric stranding. 18. Right adrenal subcentimeter hypoattenuating lesion. 19. Fecal retention with constipation. 20. Lumbar vertebrae sclerosis, punctate sclerosis. 21. Questionable pyelonephritis with urinary tract infection. 22. Right middle lobe atelectasis. 23. Bibasilar opacities versus infiltrate, versus pneumonia, versus congestive heart failure. 24. Left lower lobe consolidation. 25. Degenerative joint disease of the spine. 26. Questionable healthcare-associated versus community-acquired pneumonia. 27. Mild cardiomegaly and pulmonary vascular congestion, probably volume overload secondary to IV fluid resuscitation. 28. Hetrogen...Hepatic heterogeneity. 29. Paroxysmal supraventricular tachycardia. 30. Transient hypotension. PLAN: At this time, the patient is seen by cardiology, gastroenterology, infectious disease. Their recommendations are noted, and the recommendations were also explained to the patient and the patient's daughter, Tsering Arcos. Cardiology recommends outpatient stress test. Gastroenterology recommends the patient to be seen at the [facility] at a tertiary care center for evaluation of pancreatic tail lesions and cyst for EUS-guided biopsy and cyst aspiration. The patient has been ordered serial labs. CURRENT MEDICATIONS: 1. Calan 40 mg 3 times a day. 2. Drisdol 50,000 units weekly. 3. Ecotrin 81 mg daily. 4. Venofer 200 mg IV daily x 1. 5. K-Dur 20 mEq twice a day. 6. Lasix 20 mg IV q. 12. 7. Lopressor 50 mg twice a day. 8. Lovenox 80 mg subQ q. 12. 9. Magnesium oxide 400 mg twice a day. 10. MiraLax 17 gram daily. 11. Plavix 75 mg daily. 12. Protonix 40 mg daily. 13. Rocephin 2 grams IV daily. 14. Tylenol 650 q. 6 p.r.n. 15. Verapamil 2.5 mg IV q. 6 p.r.n. 16. Vitamin B12, 1000 mcg IM daily. 17. Vitamin D3, 2000 international units daily. 18. Xopenex nebulizer 0.63 mg every 6 hours. The patient has been ordered. Seen by cardiology. Telemetry discontinued. The patient has been ordered out of bed, AG stockings, SCDs, occupational therapy, physical therapy ordered. Out of bed ordered. TCU evaluation ordered. The patient's condition, diagnosis, treatment plan, outpatient management plan, outpatient followup plan, outpatient stress test were discussed and explained to the patient at length and the patient's daughter at length, and all questions and concerns answered. Dictated and electronically signed, not read. Abran De Souza MD cc: [id number] TT: 06/02/2016 10:36:08 Confirmation # [id number] Dictation # [id number] jn MTDD
[2016-06-02 11:38] LABS: INR 0.97 (0.93-1.08); PARTIAL THROMBOPLASTIN TIME 37.3 Seconds (23.7-30.8)
--- NOTE | 2016-06-02 13:25 | PN ---
DATE: 06/02/2016 The patient is in bed in no acute distress. The patient was seen earlier this morning in room 263. No fevers and no chills. PHYSICAL EXAMINATION: VITAL SIGNS: Temperature is 98, blood pressure is 119/70, respiratory rate 16. HEENT: Unremarkable. NECK: Supple. LUNGS: Have decreased breath sounds. HEART: Normal S1, S2. ABDOMEN: Soft and nontender. LABORATORY DATA: Reveals a white count of 7.4, hemoglobin of 11. BUN of 12, creatinine of 0.7. Alk toi phosphatase of 213 and procalcitonin of 10. Urinalysis is noted. Serology reveals influenza i s negative. Microbiology reveals E. coli in the blood and E. coli in the urine. The E. coli in the blood is pansensitive including ampicillin and quinolone sensitive. E. coli in the urine is also gonzalez sensitive. Repeat blood cultures have no growth. Review of the orders reveals the patient to be on ceftriaxone. Review of the EKG reveals a QTC of 47 1. ASSESSMENT AND PLAN: An 81-year-old female admitted with sepsis secondary to Escherichia coli bacter emia, secondary to Escherichia coli urinary tract infection, appears to be improving, day #4 of antib iotics. May switch to p.o. Vantin 200 mg b.i.d. x 7 days for a total of 10 days. Hernan Fisher MD cc: [id number] TT: 06/02/2016 13:24:43 Confirmation # [id number] Dictation # [id number]
[2016-06-02 16:42] LABS: GLYCOMARK(R) 15.3 mcg/mL (7.5-28.4)
[2016-06-02] MEDS ORDERED: Cefpodoxime (Vantin) 200 mg Tab PO SCH (22:00)
--- NOTE | 2016-06-08 15:03 | CP.PCM.DIS ---
Provider - Provider Date of Admission: 05/30/16 06/02/2016 Attending physician: Abran De Souza MD Primary care physician: Abran De Souza MD Time Spent in preparation of Discharge (in minutes): 45 Hospital Course - Lab Results Lab Results: Micro Results 05/30/16 18:30 Blood-Venous Blood Culture - Final NO GROWTH AFTER 5 DAYS 05/30/16 18:30 Blood-Venous Gram Stain - Final 05/30/16 18:45 Blood-Venous Blood Culture - Final Escherichia Coli 05/30/16 18:45 Blood-Venous Gram Stain - Final 06/01/16 22:40 Urine Urine Culture - Final No Growth (<1,000 CFU/ML) Most Recent Lab Values WBC 7.4 10^3/ul (4.5-11.0) 06/02/16 06:00 RBC 3.55 10^6/uL (3.5-6.1) 06/02/16 06:00 Hgb 11.1 gm/dL (12.0-16.0) L 06/02/16 06:00 Hct 33.4 % (36.0-48.0) L 06/02/16 06:00 MCV 94.1 fL (80.0-105.0) 06/02/16 06:00 MCH 31.3 pg (25.0-35.0) 06/02/16 06:00 MCHC 33.2 g/dl (31.0-37.0) 06/02/16 06:00 RDW 12.6 % (11.5-14.5) 06/02/16 06:00 Plt Count 198 10^3/uL (120.0-450.0) 06/02/16 06:00 MPV 9.3 fl (7.0-11.0) 06/02/16 06:00 Gran % 68.3 % (50.0-68.0) H 06/01/16 06:45 Lymph % (Auto) 18.6 % (22.0-35.0) L 06/01/16 06:45 Boyd % (Auto) 11.0 % (1.0-6.0) H 06/01/16 06:45 Eos % (Auto) 1.7 % (1.5-5.0) 06/01/16 06:45 Baso % (Auto) 0.4 % (0.0-3.0) 06/01/16 06:45 Gran # 4.71 (1.4-6.5) 06/01/16 06:45 Lymph # 1.3 (1.2-3.4) 06/01/16 06:45 Boyd # 0.8 (0.1-0.6) H 06/01/16 06:45 Eos # 0.1 (0.0-0.7) 06/01/16 06:45 Baso # 0.03 K/mm3 (0.0-2.0) 06/01/16 06:45 Neutrophils % (Manual) 52 % (50.0-70.0) 06/02/16 06:00 Band Neutrophils % 2 % (0-2) 05/30/16 06:30 Lymphocytes % (Manual) 40 % (22.0-35.0) H 06/02/16 06:00 Atypical Lymphs % 3 % (0.0-0.0) H 06/02/16 06:00 Monocytes % (Manual) 4 % (1.0-6.0) 06/02/16 06:00 Eosinophils % (Manual) 1 % (0.0-3.0) 06/02/16 06:00 Platelet Evaluation Normal (NORMAL) 06/02/16 06:00 Polychromasia Slight 05/30/16 06:30 Hypochromasia 1+ 06/02/16 06:00 Anisocytosis (manual) 1+ 06/02/16 06:00 PT 10.5 Seconds (9.9-11.8) 06/02/16 11:00 INR 0.97 (0.93-1.08) 06/02/16 11:00 APTT 37.3 Seconds (23.7-30.8) H 06/02/16 11:00 pO2 60 mm/Hg (30-55) H 05/29/16 23:43 VBG pH 7.27 (7.32-7.43) L 05/29/16 23:43 VBG pCO2 49.0 (40-60) 05/29/16 23:43 VBG HCO3 22.5 mmol/l (21-28) 05/29/16 23:43 VBG Total CO2 24.0 mmol.L (22-28) 05/29/16 23:43 VBG O2 Sat (Calc) 90.2 % (40-65) H 05/29/16 23:43 VBG Base Excess -4.7 mmol/L (0.0-2.0) L 05/29/16 23:43 VBG Potassium 4.3 mmol/L (3.6-5.2) 05/29/16 23:43 Sodium 138.0 mmol/L (132-148) 05/29/16 23:43 Chloride 111.0 mmol/L (98-107) H 05/29/16 23:43 Glucose 124 mg/dl (65-105) H 05/29/16 23:43 Lactate 1.2 mmol/L (0.7-2.1) 05/29/16 23:43 FiO2 21.0 % 05/29/16 23:43 Sodium 139 mmol/L (132-148) 06/02/16 06:00 Potassium 4.4 mmol/L (3.6-5.0) 06/02/16 06:00 Chloride 105 mmol/L (95-110) 06/02/16 06:00 Carbon Dioxide 26 mmol/L (21-33) 06/02/16 06:00 Anion Gap 12 (10-20) 06/02/16 06:00 BUN 12 mg/dL (7-21) 06/02/16 06:00 Creatinine 0.7 mg/dL (0.5-1.4) 06/02/16 06:00 Est GFR ( Amer) > 60 06/02/16 06:00 Est GFR (Non-Af Amer) > 60 06/02/16 06:00 POC Glucose (mg/dL) 164 mg/dL (65-110) H 05/29/16 20:24 Random Glucose 90 mg/dL (70-110) 06/02/16 06:00 Hemoglobin A1c 5.9 % (4.2-6.5) 05/30/16 09:55 Fructosamine 177 umol/L (190-270) L 05/30/16 09:55 Lactic Acid 1.1 mmol/L (0.7-2.1) 05/29/16 23:43 Uric Acid 3.9 mg/dL (2.5-6.2) 05/30/16 06:30 Calcium 9.2 mg/dL (8.4-10.5) 06/02/16 06:00 Phosphorus 2.7 mg/dL (2.5-4.5) 05/29/16 20:24 Magnesium 2.2 mg/dL (1.7-2.2) 06/02/16 06:00 Iron 60 ug/dL (45-180) 06/01/16 08:30 TIBC 252 ug/dL (265-497) L 06/01/16 08:30 % Saturation 24 % (20-55) 06/01/16 08:30 Erythropoietin 39.2 mIU/mL (2.6-18.5) H 06/01/16 08:30 Ferritin 274.0 ng/mL 06/01/16 08:30 Total Bilirubin 0.5 mg/dL (0.2-1.3) 06/02/16 06:00 Direct Bilirubin 0.4 mg/dL (0.0-0.4) 06/02/16 06:00 GGT 189 U/L (8-78) H 06/02/16 11:00 AST 57 U/L (15-39) H 06/02/16 06:00 ALT 65 U/L (7-56) H 06/02/16 06:00 Alkaline Phosphatase 213 U/L (38-133) H 06/02/16 06:00 Lactate Dehydrogenase 440 U/L (333-699) 06/01/16 06:45 Total Creatine Kinase 85 U/L (35-230) 06/01/16 06:45 Troponin I 0.03 ng/mL D 06/01/16 06:45 NT-Pro-B Natriuret Pep 1640 pg/mL (0-450) H 05/30/16 08:39 Total Protein 7.0 g/dL (5.8-8.3) 06/02/16 06:00 Albumin 3.4 g/dL (3.0-4.8) 06/02/16 06:00 Globulin 3.5 gm/dL 06/02/16 06:00 Albumin/Globulin Ratio 1.0 (1.1-1.8) L 06/02/16 06:00 Triglycerides 47 mg/dL (35-160) 05/30/16 08:39 Cholesterol 86 mg/dL (130-200) L 05/30/16 08:39 LDL Cholesterol Direct < 30 mg/dL (0-129) 05/30/16 08:39 HDL Cholesterol 40 mg/dL (29-60) 05/30/16 08:39 CA 19-9 Antigen 3.9 U/mL (0-37) 06/02/16 07:00 Vitamin B12 232 pg/mL (239-931) L 06/01/16 08:30 25-OH Vitamin D Total 25.7 NG/ML (30.0-100.0) L 05/30/16 08:50 Folate > 20.0 ng/mL 06/01/16 08:30 Procalcitonin 10.53 NG/ML (0.19-0.49) H 06/01/16 11:00 Free T4 1.46 ng/dL (0.78-2.19) 05/30/16 09:55 Thyroxine (T4) 5.2 ug/dL (5.5-11.0) L 05/30/16 09:55 TSH 3rd Generation 1.37 mIU/mL (0.46-4.68) 05/30/16 09:55 Venous Blood Potassium 4.3 mmol/L (3.6-5.2) 05/29/16 23:43 Urine Color Yellow (YELLOW) 06/01/16 22:40 Urine Appearance Clear (CLEAR) 06/01/16 22:40 Urine pH 7.0 (4.7-8.0) 06/01/16 22:40 Ur Specific [place] 1.010 (1.005-1.035) 06/01/16 22:40 Urine Protein Negative mg/dL (<30 mg/dL) 06/01/16 22:40 Urine Glucose (UA) Negative mg/dL (NEGATIVE) 06/01/16 22:40 Urine Ketones Negative mg/dL (NEGATIVE) 06/01/16 22:40 Urine Blood Small (NEGATIVE) H 06/01/16 22:40 Urine Nitrate Negative (NEGATIVE) 06/01/16 22:40 Urine Bilirubin Negative (NEGATIVE) 06/01/16 22:40 Urine Urobilinogen 0.2 E.U./dL (<1 E.U./dL) 06/01/16 22:40 Ur Leukocyte Esterase Negative Peter/uL (NEGATIVE) 06/01/16 22:40 Urine RBC 1 - 3 /hpf (0-2) 06/01/16 22:40 Urine WBC 0 - 2 /hpf (0-6) 06/01/16 22:40 Ur Epithelial Cells 0 - 2 /hpf (0-5) 06/01/16 22:40 Urine Bacteria Many (NEG) 05/29/16 21:00 Hepatitis A IgM Ab Negative (NEGATIVE) 06/02/16 11:00 Hep Bs Antigen Negative (NEGATIVE) 06/02/16 11:00 Hep B Core IgM Ab Negative (NEGATIVE) 06/02/16 11:00 Hepatitis C Antibody Negative (NEGATIVE) 06/02/16 11:00 Influenza Typ A,B (EIA) Negative for flu a/b (NEGATIVE) 05/30/16 08:04 - Hospital Course Hospital Course: [facility] [address] [place] [address] Health Information Management History and Physical Report : [id number] Draft Patient: SUSAN NAVARRETE Unit: [id number] : 1935 Loc: [facility] Room/Bed: [facility] Age/Sex: 81 / F ADM Status: ADM IN ADM Date: Copied To: Attending MD: Ap IRVIN,Abran Gale The patient is an 81-year-old female who presented to the Emergency Room with weakness, extremely weak, difficulty waking up generalized weakness. The patient came to the Emergency Room by [facility] ambulance. According to the ER physician note, the patient complained of generalized weakness, difficulty walking. The patient was noted by the family to be having...looking pale and having chills and fever. The patient also had a poor p.o. intake. A 13-system review was done. Pertinent positive and negative dictated above. CODE STATUS: Full Code. LIVING WILL/ADVANCE DIRECTIVE: None. HEIGHT: 5 feet 2 inches. WEIGHT: 182. BMI: 33. ALLERGIES: None. HOME MEDICATIONS: Toprol-XL 25 mg once or twice a day, Protonix 40 mg daily, MiraLax 17 g once or twice a day. Lovaza 2 g twice a day, Lipitor 10 mg daily, Fosamax 70 mg weekly , folic acid 1 mg daily, aspirin 81 mg daily, Drisdol 50,000 weekly, Celebrex 200 mg. SOCIAL HISTORY: Negative for smoking, negative for alcohol, negative for drug use. Negative for communicable transmissible disease. FAMILY HISTORY: Not available. 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 MENSTRUAL HISTORY: Postmenopausal. PAST MEDICAL AND SURGICAL HISTORY: History of hypertension, history of paroxysmal SVT...PSVT, history of gastroesophageal reflux, history of constipation, history of dyslipidemia, history of osteoporosis, history of hypovitaminosis D, history of...history of... history of anemia, history of dyslipidemia, history of non-ST elevation...history of... history of hypovitaminosis D, history of urinary tract infection... history of...history of microvascular ischemic disease of the brain, history of obesity with elevated body mass index, history of degenerative joint disease of the knees, history of cardiac catheterization in 05/2015 showing ejection fraction of 60-70 %, history of 70% stenosis of the proximal ramus intermedius, history of diffuse atherosclerosis of the left circumflex and obtuse marginal, history of intimal irregularities of the right coronary artery, history of 70% stenosis of the small ramus intermedius vessel, history of single vessel coronary artery disease, history of SVT...history of paroxysmal supraventricular tachycardia, history of degenerative joint disease of the knees, history of osteoporosis, history of... history of prediabetes, history of prediabetes, history of prediabetes, history of prediabetes, history of prediabetes, history of... history of trace mitral and trace tricuspid regurgitation, history of... history of... history of degenerative joint disease of the knees, history of hypovi... history of constipation, history of meniscal tear and atrophy of the knee, history of... 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 history of uterine cervical mucosal ulcers, history of endometrial hyperplasia, history of hysterectomy and salpingo-oophorectomy, history of... history of focal adenomyosis of the endometrium, history of degenerative disk disease of the lumbar spine with spinal stenosis, foraminal narrowing, history of degenerative joint disease of the knees, history of near- syncope, history of paroxysmal supraventricular tachycardia, history of dyslipidemia, history of urinary tract infection, history of chronic microvascular ischemic disease of the brain, history of... The patient's past medical history is also significant for history of...of single vessel coronary artery disease. The patient came to the Emergency Room. The patient's T-max was found to be 104.1, down to 101.3, down to 99.4. Heart rate 98, 74, 107, 81, 82. Blood pressure initially 106/85; 83/45; 92/41; 112/60; 158, 198/64; then 170/88, down to 115/78. Respiration 18-20, O2 sat is 98-99%. HEAD EXAMINATION: The patient is seen lying in the stretcher. HEAD EXAMINATION: Normocephalic, atraumatic. HENT EXAMINATION: Shows pinkish conjunctivae. Dry oral mucosa. No neck rigidity. Soft carotid bruit. CHEST EXAMINATION: Kyphosis. LUNG EXAMINATION: Shows no rales, occasional rhonchis upper lung penaloza anteriorly. CARDIOVASCULAR EXAMINATION: S1, S2. Regular rhythm. Questionable soft systolic murmur left sternal border, left second intercostal space. ABDOMEN: Protuberant, positive bowel sounds. Questionable bilateral costovertebral angle tenderness. GENITALIA: Female. RECTAL EXAMINATION: Deferred. EXTREMITIES: Shows no pitting edema, no calf tenderness, no Homans' sign. No clubbing, no cyanosis. VASCULAR EXAMINATION: Palpable pulses. MUSCULOSKELETAL EXAMINATION: Shows a body mass index of 33.3. Cranial nerves II-XII limited. GAIT EXAMINATION: Not tested. PSYCHIATRIC EXAMINATION: Negative for anxiety. Negative for depression. Negative for suicidal or homicidal ideation. DIAGNOSTICS: Initial CBC: WBC 7.8, hemoglobin and hematocrit 12.2 and 36.4, platelets 150, granulocytes 90% segs. Repeat CBC: WBC 8.2, hemoglobin and hematocrit 10.6 and 31.8, platelets 124. PT, PTT 10.7 and 25.4. Initial ABG shows a lactic acid of 2...VBG shows a lactic acid of 2.2, repeat VBG shows pH dropping from 3.6... 36...7.36 to 7.27, and lactic acid 1.8, which was repeated and 4 hours. Chemistry: Sodium 137, potassium 4.1, chloride 100, CO2 of 28, anion gap 13, BUN 19, creatinine 1.1, GFR 58, glucose 141...glucose 141. Lactic acid 1.1, calcium 9.3, magnes...phosphorus 2.7, magnesium 2.0. AST 108, ALT 99, alk phos 157. Troponin 0.24. Repeat Chemistry: Sodium 136, potassium 3.9, chloride 107, CO2 of 23, anion gap 10, BUN 15, creatinine 0.8, GFR greater than 60, glucose 130, uric acid 3.9, calcium 7.8, magnesium 1.7, total bili 1.5 , direct bilirubin 1.1. AST is down to 75 from 108. ALT is 87 from 99, alk phos is 139 from 157. Repeat troponin 0.24 and 0.18 and 0.18. Urine pH 6.0, specific gravity 1.025, 100 protein, large blood, small leukocyte esterase, many bacteria. Influenza flu was negative. Rapid flu was negative. The patient was seen and evaluated in the Emergency Room by the ER physician. The patient's blood pressure in the early part dropped to 83/45 and 92/54. The patient needed multiple IV fluid boluses, more than 4 L of IV fluid bolus was given. The patient was evaluated by the shuttle buggy operator. The patient's chest x-ray...chest x-ray was done which shows no active disease. The patient's EKG was done...The patient's EKG was done in the Emergency Room. The patient's EKG was done in the Emergency Room. CAT scan of the abdomen and pelvis was done. EKG shows SVT at a rate of [address]-T changes. CAT scan shows cluster of cystic structures in the pancreatic tail with dilated pancreatic duct, bilateral perinephric stranding, stool retention, with atelectasis and bibasilar opacities in the lung, with small consolidation left lower lobe lung penaloza. Abdominal sonogram was done in the Emergency Room which shows hepatic echogenicity distended gallbladder. The patient was evaluated in... by the shuttle buggy operator as per Dr. Rodriguez has requested. The patient... The patient...After ICU evaluation, despite the patient's hypotension and elevated M...elevated troponin, the patient was...was admitted to telemetry. The patient during the night was seen by the house physician, Dr. Phillips. The patient was found to be in paroxysmal SVT. The patient was given Lopressor 2.5 mg IV. The patient's blood pressure was found to be elevated during the night. The patient had some wheezing and congestion. Repeat chest x-ray shows mild vascular congestion, for which patient was given Lasix. The patient was evalua...and blood pressure was elevated 170 systolic. IMPRESSION AND PLAN: 1. Questionable septic versus cardiogenic shock with high-grade fever and lactic acidosis. 2. Paroxysmal supraventricular tachycardia. 3. Acute non-ST elevation myocardial infarction. 4. Hypotension...Hypotension probably secondary to acute non-ST elevation myocardial infarction versus cardiogenic shock, versus septic shock. 5. Paroxysmal supraventricular tachycardia. 6. Transient hypotension. 7. High-grade fever of 104. 8. Granulocytosis. 9. Normocytic anemia. 10. Lactic acidosis. 11. Acute non-ST elevation myocardial infarction with elevated troponin. 12. Transaminitis. 13. Hyperglycemia with history of prediabetes. 14. Questionable urinary tract infection with proteinuria, microscopic hematuria , pyuria, bacteriuria. 15. Bilateral perinephric stranding, etiology undetermined. 16. Questionable pancreatic tail cystic mass with dilated pancreatic duct of 8 mm. 17. Bilateral perinephric stranding. 18. Right adrenal subcentimeter hypoattenuating lesion. 19. Fecal retention with constipation. 20. Lumbar vertebrae sclerosis, punctate sclerosis. 21. Questionable pyelonephritis with urinary tract infection. 22. Right middle lobe atelectasis. 23. Bibasilar opacities versus infiltrate, versus pneumonia, versus congestive heart failure. 24. Left lower lobe consolidation. 25. Degenerative joint disease of the spine. 26. Questionable healthcare-associated versus community-acquired pneumonia. 27. Mild cardiomegaly and pulmonary vascular congestion, probably volume overload secondary to IV fluid resuscitation. 28. Hetrogen...Hepatic heterogeneity. 29. Paroxysmal supraventricular tachycardia. 30. Transient hypotension. PLAN: At this time, the patient has been admitted to telemetry after evaluation by the shuttle buggy operator. The patient has been ordered serial labs, serial cardiac enzymes, thyroid panel, lipid panel, hemoglobin A1c, fructosamine , glucose...glyco , CBC, blood cultures, urine cultures ordered. CONSULTATIONS: 1. Cardiology. 2. Gastroenterology. 3. Infectious disease. Procalcitonin level is ordered. CURRENT MEDICATIONS: 1. Drisdol 50,000 weekly. 2. The patient is on Ecotrin 81 daily. The patient was started on... The patient was given Lasix 40 IV during the night. The patient was given Plavix. The patient is on aspirin 81 daily. The patient started on Lasix 20 IV q. 12. The patient was given Lopressor 2.5 IV. The patient is on Lopressor 25 twice a day, Lovenox 80 mg subQ q. 12, magnesium oxide 400 twice a day, MiraLax 17 g daily, Plavix 75 mg p.o. daily, Protonix 40 mg daily. The patient's IV fluid hydration is at present completed. The patient is on Tylenol p.r.n. for fever, Xopenex nebulizer every 6 hours, Zosyn 3.375 g IV q. 6 hours. Serial EKG, echo with Doppler ordered. Heart-healthy diet, AG stockings, SCDs ordered. At present, the patient's condition is guarded. PROGNOSIS: Guarded. The patient has been explained about the details of her medical condition in layman's language, which she acknowledged and understands. All questions and concerns answered, which she acknowledged and understands. I have also contacted the patient's daughter, Albaro, regarding the patient's condition. Message was left on her voicemail. The patient's entire diagnostic data, therapeutic interventions reviewed at length. At present, we are awaiting for further recommendation by all the physicians involved in the care of the patient. Dictated and electronically signed, not read. Abran De Souza MD cc: [id number] TT: 05/30/2016 10:08:29 jn Dictated By: Abran De Souza MD Transcribed Date and Time: 05/30/16 1008 Transcribed By: JOHN Signed By: Date & Time Signed: Co-Signed By: Date & Time Signed: Discharge Exam - Head Exam Head Exam: NORMAL INSPECTION - Skin Additional comments: [facility] [address] [place] [address] Health Information Management Progress Note : [id number] Draft Patient: SUSAN NAVARRETE [facility] #:[id number] Unit: [id number] : 1935 Loc: 2RNO Room/Bed: 263-02 Age/Sex: 81 / F ADM Status: ADM IN ADM Date: DIS Date: Copied To: Attending MD: Abran De Souza MD DATE: 06/02/2016 The patient is seen in room 263, bed 2. The patient is lying in the bed. The patient's daughter is at bedside. Overnight nurse's notes were reviewed. No adverse event documented. PHYSICAL EXAMINATION: VITAL SIGNS: T-max is 98.2. Telemetry shows sinus rhythm, paroxysmal atrial fibrillation, heart rate in 70s and 80s. Blood pressure is ranging in 120s/190 systolic, diastolic and 75, respirations 18. O2 sat is 96-97%. OUTPUT: 1000+400. HEAD: Normocephalic, atraumatic. HEENT: Shows pinkish conjunctivae, anicteric sclerae. No oropharyngeal lesion. NECK: No neck rigidity. CHEST: Kyphosis. LUNGS: Show no rales, crackles, or wheezing. CARDIOVASCULAR: Shows S1, S2, regular rhythm. ABDOMEN: Soft, positive bowel sounds. GENITALIA: Female. RECTAL: Deferred. EXTREMITIES: Shows positive AG stockings. No clubbing, no cyanosis, no pitting edema, no calf tenderness, no Homans' sign. NEUROLOGIC: The patient is alert, awake, and oriented x 3. Cranial nerves II- XII intact. GAIT: Not tested. PSYCHIATRIC: Negative for anxiety, depression. Negative for auditory hallucination. Negative for suicidal or homicidal ideation. MUSCULOSKELETAL: Body mass index is 32. DIAGNOSTICS: 06/02 - WBC 7.4, hemoglobin and hematocrit 11.1 and 34.4, platelets 198. Sodium 139, potassium 4.4, chloride 105, CO2 of 26, anion gap 12. BUN 12, creatinine 0.7. GFR greater than 60. Glucose 90, calcium 9.2, magnesium 2.2. Iron 60, TIBC 252, iron saturation 24. AST has gone up to 57 from 38. ALT has gone up to 65 from 54. Alk phos has gone up to 213. Repeat procalcitonin level is 10.53 from 14.2. B12 is 232. Folate is greater than 20. Blood and urine cultures are Escherichia coli. EKG shows sinus rhythm, questionable left axis deviation, T-wave inversion in lead 3. FINAL IMPRESSION AND PLAN AND DISCHARGE DIAGONOSES: 1. Septic versus questionable cardiogenic shock. 2. Escherichia coli bacteremia, sepsis, and Escherichia coli urinary tract infection. 3. Paroxysmal atrial fibrillation converting to normal sinus rhythm ____. 4. Paroxysmal atrial fibrillation with rapid ventricular response. 5. Acute non-ST elevation myocardial infarction with elevated troponin. 6. History of single-vessel coronary artery disease with 70% stenosis of the ramus intermedius. 7. Paroxysmal supraventricular tachycardia and paroxysmal atrial fibrillation. 8. Transient hypoxemia. 9. Normocytic iron deficiency anemia with granulocytosis. 10. Lactic acidosis. 11. Prediabetes with hemoglobin A1c of 5.9. 12. Hyperglycemia with prediabetes. 13. Transaminitis. 14. Acute non-ST elevation myocardial infarction with elevated troponin. 15. Hyperprocalcitoninemia. 16. Vitamin B12 deficiency. 17. Persistent hyperprocalcitoninemia. 18. Escherichia coli urinary tract infection and Escherichia coli bacteremia and sepsis with proteinuria, microscopic hematuria, pyuria, bacteriuria. 19. Left axis deviation. 20. History of hypovitaminosis D. 21. Hypokalemia. 22. Hypomagnesemia. 23. Constipation. 24. Hypovitaminosis D. PLAN: At this time, the patient is seen by cardiology, gastroenterology, infectious disease. Their recommendations are noted, and the recommendations were also explained to the patient and the patient's daughter, Tsering Arcos. Cardiology recommends outpatient stress test. Gastroenterology recommends the patient to be seen at the [facility] at a tertiary care center for evaluation of pancreatic tail lesions and cyst for EUS-guided biopsy and cyst aspiration. The patient has been ordered serial labs. CURRENT DISCHARGE MEDICATIONS: 1. Calan 40 mg 3 times a day. 2. Drisdol 50,000 units weekly. 3. Ecotrin 81 mg daily. 4. Venofer 200 mg IV daily x 1. 5. K-Dur 20 mEq twice a day. 6. Lasix 20 mg IV q. 12. 7. Lopressor 50 mg twice a day. 8. Lovenox 80 mg subQ q. 12. 9. Magnesium oxide 400 mg twice a day. 10. MiraLax 17 gram daily. 11. Plavix 75 mg daily. 12. Protonix 40 mg daily. 13. Rocephin 2 grams IV daily. 14. Tylenol 650 q. 6 p.r.n. 15. Verapamil 2.5 mg IV q. 6 p.r.n. 16. Vitamin B12, 1000 mcg IM daily. 17. Vitamin D3, 2000 international units daily. 18. Xopenex nebulizer 0.63 mg every 6 hours. The patient has been ordered. Seen by cardiology. Telemetry discontinued. The patient has been ordered out of bed, AG stockings, SCDs, occupational therapy, physical therapy ordered. Out of bed ordered. TCU evaluation ordered. The patient's condition, diagnosis, treatment plan, outpatient management plan, outpatient followup plan, outpatient stress test were discussed and explained to the patient at length and the patient's daughter at length, and all questions and concerns answered. Dictated and electronically signed, not read. Abran De Souza MD cc: [id number] TT: 06/02/2016 10:36:08 Confirmation # [id number] Dictation # [id number] jn Dictated By: Abran De Souza MD Transcribed Date and Time: 06/02/16 1036 Transcribed By: JOHN Signed By: Date & Time Signed: Co-Signed By: Date & Time Signed: - Additional Findings Additional findings: [place] [address] Health Information Management Progress Note : [id number] Draft Patient: SUSAN NAVARRETE Unit: [id number] : 1935 Loc: 2R Room/Bed: 263-02 Age/Sex: 81 / F ADM Status: DIS IN ADM Date: DIS Date:06/02/16 Copied To: Attending MD: Abran De Souza MD DATE: 06/02/2016 The patient is seen in room 263, bed 2. The patient is lying in the bed. The patient's daughter is at bedside. Overnight nurse's notes were reviewed. No adverse event documented. PHYSICAL EXAMINATION: VITAL SIGNS: T-max is 98.2. Telemetry shows sinus rhythm, paroxysmal atrial fibrillation, heart rate in 70s and 80s. Blood pressure is ranging in 120s/190 systolic, diastolic and 75, respirations 18. O2 sat is 96-97%. OUTPUT: 1000+400. HEAD: Normocephalic, atraumatic. HEENT: Shows pinkish conjunctivae, anicteric sclerae. No oropharyngeal lesion. NECK: No neck rigidity. CHEST: Kyphosis. LUNGS: Show no rales, crackles, or wheezing. CARDIOVASCULAR: Shows S1, S2, regular rhythm. ABDOMEN: Soft, positive bowel sounds. GENITALIA: Female. RECTAL: Deferred. EXTREMITIES: Shows positive AG stockings. No clubbing, no cyanosis, no pitting edema, no calf tenderness, no Homans' sign. NEUROLOGIC: The patient is alert, awake, and oriented x 3. Cranial nerves II- XII intact. GAIT: Not tested. PSYCHIATRIC: Negative for anxiety, depression. Negative for auditory hallucination. Negative for suicidal or homicidal ideation. MUSCULOSKELETAL: Body mass index is 32. DIAGNOSTICS: 06/02 - WBC 7.4, hemoglobin and hematocrit 11.1 and 34.4, platelets 198. Sodium 139, potassium 4.4, chloride 105, CO2 of 26, anion gap 12. BUN 12, creatinine 0.7. GFR greater than 60. Glucose 90, calcium 9.2, magnesium 2.2. Iron 60, TIBC 252, iron saturation 24. AST has gone up to 57 from 38. ALT has gone up to 65 from 54. Alk phos has gone up to 213. Repeat procalcitonin level is 10.53 from 14.2. B12 is 232. Folate is greater than 20. Blood and urine cultures are Escherichia coli. EKG shows sinus rhythm, questionable left axis deviation, T-wave inversion in lead 3. FINAL IMPRESSION AND PLAN & DISCHARGE DIAGNOSES: 1. Septic versus questionable cardiogenic shock. 2. Escherichia coli bacteremia, sepsis, and Escherichia coli urinary tract infection. 3. Paroxysmal atrial fibrillation converting to normal sinus rhythm ____. 4. Paroxysmal atrial fibrillation with rapid ventricular response. 5. Acute non-ST elevation myocardial infarction with elevated troponin. 6. History of single-vessel coronary artery disease with 70% stenosis of the ramus intermedius. 7. Paroxysmal supraventricular tachycardia and paroxysmal atrial fibrillation. 8. Transient hypoxemia. 9. Normocytic iron deficiency anemia with granulocytosis. 10. Lactic acidosis. 11. Prediabetes with hemoglobin A1c of 5.9. 12. Hyperglycemia with prediabetes. 13. Transaminitis. 14. Acute non-ST elevation myocardial infarction with elevated troponin. 15. Hyperprocalcitoninemia. 16. Vitamin B12 deficiency. 17. Persistent hyperprocalcitoninemia. 18. Escherichia coli urinary tract infection and Escherichia coli bacteremia and sepsis with proteinuria, microscopic hematuria, pyuria, bacteriuria. 19. Left axis deviation. 20. History of hypovitaminosis D. 21. Hypokalemia. 22. Hypomagnesemia. 23. Constipation. 24. Hypovitaminosis D. 1. Septic versus questionable cardiogenic shock. 2. Paroxysmal atrial fibrillation converting to normal sinus rhythm. 3. Atrial fibrillation with rapid ventricular response. 4. [id number] myocardial infarction with elevated troponin. 5. Single vessel coronary artery disease with 70% stenosis of the ramus intermedius. 6. Atrial fibrillation with rapid ventricular response. 7. Left axis deviation. 8. Paroxysmal supraventricular tachycardia. 9. Pancreatic tail multilobulated cystic lesion contiguous and possibly communicating with pancreatic duct, with enlargement of the pancreatic duct and irregular pancreatic tail, possibly representing pancreatic pseudocyst versus intraductal papillary mucinous tumor and serous or mucinous cystadenoma. 10. Mild bilateral left perinephric stranding with prominent lowery with enhancement of the ureters. 11. Nonspecific right renal subcentimeter hypoattenuating lesion. 12. Fecal retention, constipation and fecal stasis. 13. Bilateral perinephric stranding, left more than the right, with bilateral prominent ureteral wall enhancement, possible questionable pyelonephritis versus infectious inflammatory process. 14. Bibasilar atelectasis and right midlung plate atelectasis. 15. Bibasilar opacities versus infiltrate. 16. Possible left lower lobe small consolidation. 17. 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 18. Left ventricular ejection fraction of 75%. 19. Mild concentric left ventricular hypertrophy. 20. History of dyslipidemia. 21. High grade fever. 22. Atrial fibrillation with rapid ventricular response. 23. Hypotension. 24. Escherichia coli urinary tract infection and sepsis and bacteremia and urinary tract infection. 25. Escherichia coli sepsis, bacteremia and urinary tract infection. 26. Questionable and possible pancreatic stricture. 27. Normocytic anemia with granulocytosis and leukocytosis. 28. Prediabetes. 29. Hypovitaminosis D. 30. Possible iron deficiency with decreased iron, decreased iron saturation. 31. Hyperprocalcitoninemia. 32. Escherichia coli urinary tract infection with proteinuria, microscopic hematuria, pyuria, bacteriuria. 33. Lactic acidosis. 1. Gram-negative jodi bacteremia and urinary tract infection. 2. Questionable and possible septic versus cardiogenic shock. 3. Gram-negative bacteremia and urinary tract infection. 4. Hypotension. 5. Paroxysmal atrial fibrillation with rapid ventricular response. 6. High grade fever. 7. Transient hypoxemia. 8. Obesity with elevated body mass index of 34. 9. Leukocytosis with granulocytosis. 10. Normocytic anemia. 11. Transaminitis secondary to acute myocardial infarction. 12. Questionable diastolic congestive heart failure with elevated BNP. 13. Acute non-ST elevation myocardial infarction. 14. Hypovitaminosis D. 15. Hyperprocalcitoninemia of greater than 14. 16. Gram-negative jodi urinary tract infection with proteinuria, hematuria, pyuria, bacteriuria. 17. Atrial fibrillation with rapid ventricular response. 18. Pancreatic tail multilobulated cystic lesion contiguous and communicating with the pancreatic duct with dilated and irregular pancreatic duct possibly representing pancreatic pseudocyst. 19. Sepsis secondary to gram-negative bacilli bacteremia secondary to urinary tract infection. 18. Morbid obesity. 19. Deconditioning. 20. Gait dysfunction. 21. Paroxysmal atrial fibrillation with paroxysmal supraventricular tachycardia. 22. Single vessel coronary artery disease. 23. Questionable and possible acute [id number] myocardial infarction with elevated troponin versus demand ischemia. 24. Deconditioning. 25. Gait dysfunction. 26. Paroxysmal supraventricular tachycardia. 27. Left ventricular ejection fraction of 74% with mild concentric left ventricular hypertrophy. 28. Sepsis. 29. Gram-negative jodi bacteremia, sepsis and urinary tract infection. 30. Hypovitaminosis D. 31. Hyperprocalcitoninemia. 32. Hyperglycemia. 33. Hypokalemia. 34. Constipation. 1. Questionable septic versus cardiogenic shock with high-grade fever and lactic acidosis. 2. Paroxysmal supraventricular tachycardia. 3. Acute non-ST elevation myocardial infarction. 4. Hypotension...Hypotension probably secondary to acute non-ST elevation myocardial infarction versus cardiogenic shock, versus septic shock. 5. Paroxysmal supraventricular tachycardia. 6. Transient hypotension. 7. High-grade fever of 104. 8. Granulocytosis. 9. Normocytic anemia. 10. Lactic acidosis. 11. Acute non-ST elevation myocardial infarction with elevated troponin. 12. Transaminitis. 13. Hyperglycemia with history of prediabetes. 14. Questionable urinary tract infection with proteinuria, microscopic hematuria , pyuria, bacteriuria. 15. Bilateral perinephric stranding, etiology undetermined. 16. Questionable pancreatic tail cystic mass with dilated pancreatic duct of 8 mm. 17. Bilateral perinephric stranding. 18. Right adrenal subcentimeter hypoattenuating lesion. 19. Fecal retention with constipation. 20. Lumbar vertebrae sclerosis, punctate sclerosis. 21. Questionable pyelonephritis with urinary tract infection. 22. Right middle lobe atelectasis. 23. Bibasilar opacities versus infiltrate, versus pneumonia, versus congestive heart failure. 24. Left lower lobe consolidation. 25. Degenerative joint disease of the spine. 26. Questionable healthcare-associated versus community-acquired pneumonia. 27. Mild cardiomegaly and pulmonary vascular congestion, probably volume overload secondary to IV fluid resuscitation. 28. Hetrogen...Hepatic heterogeneity. 29. Paroxysmal supraventricular tachycardia. 30. Transient hypotension. PLAN: At this time, the patient is seen by cardiology, gastroenterology, infectious disease. Their recommendations are noted, and the recommendations were also explained to the patient and the patient's daughter, Tsering Arcos. Cardiology recommends outpatient stress test. Gastroenterology recommends the patient to be seen at the [facility] at a tertiary care center for evaluation of pancreatic tail lesions and cyst for EUS-guided biopsy and cyst aspiration. The patient has been ordered serial labs. CURRENT DISCHARGE MEDICATIONS: 1. Calan 40 mg 3 times a day. 2. Drisdol 50,000 units weekly. 3. Ecotrin 81 mg daily. 4. Venofer 200 mg IV daily x 1. 5. K-Dur 20 mEq twice a day. 6. Lasix 20 mg IV q. 12. 7. Lopressor 50 mg twice a day. 8. Lovenox 80 mg subQ q. 12. 9. Magnesium oxide 400 mg twice a day. 10. MiraLax 17 gram daily. 11. Plavix 75 mg daily. 12. Protonix 40 mg daily. 13. Rocephin 2 grams IV daily. 14. Tylenol 650 q. 6 p.r.n. 15. Verapamil 2.5 mg IV q. 6 p.r.n. 16. Vitamin B12, 1000 mcg IM daily. 17. Vitamin D3, 2000 international units daily. 18. Xopenex nebulizer 0.63 mg every 6 hours. The patient has been ordered. Seen by cardiology. Telemetry discontinued. The patient has been ordered out of bed, AG stockings, SCDs, occupational therapy, physical therapy ordered. Out of bed ordered. TCU evaluation ordered. The patient's condition, diagnosis, treatment plan, outpatient management plan, outpatient followup plan, outpatient stress test were discussed and explained to the patient at length and the patient's daughter at length, and all questions and concerns answered. Dictated and electronically signed, not read. Abran De Souza MD cc: [id number] TT: 06/02/2016 10:36:08 Confirmation # [id number] Dictation # [id number] Dictated By: Abran De Souza MD Transcribed Date and Time: 06/02/16 1036 Transcribed By: JOHN Signed By: Date & Time Signed: Co-Signed By: Date & Time Signed: Discharge Plan - Discharge Medications Prescriptions: Verapamil [Calan Tab] 40 mg PO TID #90 tab Potassium Chloride [K-Dur 20 mEq ER Tab] 20 meq PO BID #30 tab Furosemide [Lasix] 40 mg PO DAILY #30 tab Metoprolol Tartrate [Lopressor] 50 mg PO BID #60 tab Magnesium Oxide [Mag-Ox] 400 mg PO BID #180 tab Clopidogrel [Plavix] 75 mg PO DAILY #90 tab Cefpodoxime [Vantin] 200 mg PO BID #14 tab Cyanocobalamin [Vitamin B12 1000 mcg/ml Inj] 1,000 mcg IM DAILY #10 vial Cholecalciferol [Vitamin D 1000 IU] 2,000 iu PO DAILY #120 tab - Follow Up Plan Condition: FAIR Disposition: HOME/ ROUTINE Instructions: Sepsis (GEN) Additional Instructions: DISCHARGE HOME REFER [facility] [facility] FOLLOW UP WITHIN 1 WEEK DISCHARGE MEDS PER AMBULATORY ORDERS FOLLOW UP FOR STRESS TEST FOLLOW UP FOR GI FOLLOW UP FOR EUS AND PANCREATIC MASS TREATMENT Referrals: Jose Eduardo Murray MD [Staff Provider] - 1 Week (DISCHARGE HOME REFER [facility] [employer] [facility] PT FOLLOW UP WITHIN 1 WEEK DISCHARGE MEDS PER AMBULATORY ORDERS FOLLOW UP FOR STRESS TEST FOLLOW UP FOR GI FOLLOW UP FOR EUS AND PANCREATIC MASS TREATMENT) Abran De Souza MD [Primary Care Provider] - 1 Week (DISCHARGE HOME REFER [facility] [employer] [facility] PT FOLLOW UP WITHIN 1 WEEK DISCHARGE MEDS PER AMBULATORY ORDERS FOLLOW UP FOR STRESS TEST DISCHARGE HOME REFER [facility] PT FOLLOW UP WITHIN 1 WEEK DISCHARGE MEDS PER AMBULATORY ORDERS FOLLOW UP FOR STRESS TEST FOLLOW UP FOR GI FOLLOW UP FOR EUS AND PANCREATIC MASS TREATMENT) Malik Lamb MD [Staff Provider] - 1 Week (DISCHARGE HOME REFER [facility] [employer] [facility] [facility] PT FOLLOW UP WITHIN 1 WEEK DISCHARGE MEDS PER AMBULATORY ORDERS FOLLOW UP FOR STRESS TEST FOLLOW UP FOR GI FOLLOW UP FOR EUS AND PANCREATIC MASS TREATMENT)
== END 2016-06-02 14:11 | disposition home or self-care (01) | DRG 584 ==
LOC: ED 19:50 → ERH 05-30 01:00 → 2RNO 05-30 02:15
PROVIDERS: ADMIT Internal Medicine; ATTEND Internal Medicine
PROC: 3E0F7GC Introduction of Other Therapeutic Substance into Respiratory Tract, Via Natural or Artificial Opening (ICD-10-PCS; principal; 2016-05-30)
DX: A41.51 Sepsis due to Escherichia coli [E. coli] (principal); I21.4 Non-ST elevation (NSTEMI) myocardial infarction; E87.2 Acidosis; K85.90 Acute pancreatitis without necrosis or infection, unspecified; N39.0 Urinary tract infection, site not specified; J98.11 Atelectasis; E53.8 Deficiency of other specified B group vitamins; I47.1 Supraventricular tachycardia; I48.0 Paroxysmal atrial fibrillation; E66.01 Morbid (severe) obesity due to excess calories; E55.9 Vitamin D deficiency, unspecified; E78.5 Hyperlipidemia, unspecified; K21.9 Gastro-esophageal reflux disease without esophagitis; M81.0 Age-related osteoporosis without current pathological fracture; K59.00 Constipation, unspecified; I25.10 Atherosclerotic heart disease of native coronary artery without angina pectoris; M47.9 Spondylosis, unspecified; R62.7 Adult failure to thrive; I10 Essential (primary) hypertension; E78.00 Pure hypercholesterolemia, unspecified; D50.9 Iron deficiency anemia, unspecified; R73.03 Prediabetes; M51.36 Other intervertebral disc degeneration, lumbar region; R26.9 Unspecified abnormalities of gait and mobility; Z68.34 Body mass index [BMI] 34.0-34.9, adult; Z90.710 Acquired absence of both cervix and uterus; I25.2 Old myocardial infarction

== ENCOUNTER 2016-07-03 06:27 | Day surgery (SDC) | payer MEDICARE, OTHER ==
[2016-07-03 07:02] LABS: ADD MANUAL DIFF? NO
[2016-07-03] MEDS ORDERED: Midazolam 2 MG/2 ML VIAL ONE (07:04)
[2016-07-03] MEDS ORDERED: Phenylephrine 10 mg/ml Inj ONE (07:04)
[2016-07-03] MEDS ORDERED: Lidocaine 2% Inj (20ml) ONE (07:04)
[2016-07-03] MEDS ORDERED: Iodixanol 320 MG/ML 100 ML BOTTLE IV ONE (07:05)
[2016-07-03] MEDS ORDERED: Nitroglycerin 50mg in D5W 0 MG/0 ML BOTTLE IV ONE (07:05)
[2016-07-03] MEDS ORDERED: Iodixanol 320 MG/ML 200 ML BOTTLE IV ONE (07:05)
[2016-07-03] MEDS ORDERED: Iohexol 350mgl/ml 50 ML ONE (07:05)
[2016-07-03 07:12] VITALS: RESP 18; TEMP 97.8
[2016-07-03 07:16] LABS: BLOOD UREA NITROGEN 13 mg/dL (7-21); CALCIUM 9.5 mg/dL (8.4-10.5); CARBON DIOXIDE 27 mmol/L (21-33); CHLORIDE 106 mmol/L (95-110); GFR AFRICAN-AMERICAN > 60; GLUCOSE,RANDOM 103 mg/dL (70-110); POTASSIUM 4.4 mmol/L (3.6-5.0); SODIUM 142 mmol/L (132-148)
[2016-07-03 07:21] LABS: BASO # 0.03 K/mm3 (0.0-2.0); BASO % 0.5 % (0.0-3.0); EOS # 0.2 (0.0-0.7); EOS % 2.8 % (1.5-5.0); GRAN # 4.23 (1.4-6.5); HEMATOCRIT 35.8 % (36.0-48.0); LYMPH # 1.6 (1.2-3.4); LYMPH % 24.3 % (22.0-35.0); MEAN CORPUSCULAR HEMOGLOBIN 31.3 pg (25.0-35.0); MEAN PLATELET VOLUME 9.2 fl (7.0-11.0); MONO # 0.5 (0.1-0.6); MONO % 7.4 % (1.0-6.0); PLATELET COUNT 195 10^3/uL (120.0-450.0); RED CELL DISTRIBUTION WIDTH 12.8 % (11.5-14.5); WHITE BLOOD COUNT 6.5 10^3/ul (4.5-11.0)
[2016-07-03 07:26] LABS: INR 0.9 (0.93-1.08); PARTIAL THROMBOPLASTIN TIME 24.7 Seconds (23.7-30.8)
[2016-07-03] MEDS ORDERED: Sodium Chloride 0.9% 1,000 ML IV SCH (10:15)
--- NOTE | 2016-07-03 10:36 | CARDCATH ---
PROCEDURE DATE: 07/03/2016 HISTORY OF PRESENT ILLNESS: The patient is an 81-year-old woman with a history of hypertension and c hest pain who presents with an abnormal stress test. Cardiac catheterization was recommended. PROCEDURE: Left heart catheterization, coronary angiography, left ventriculogram and supra-aortic va lvular injection. The right femoral artery was cannulated with a 6-Bermudian sheath. There were no complications. Findings on catheterization revealed a left ventricle that contracted normally. Estimated ejection f raction is 60%. Supra-aortic valvular injection revealed no aortic insufficiency. There is a dilated ascending and t ransverse aorta without evidence for dissection. Her coronary anatomy revealed a right dominant circulation. The RCA revealed diffuse atherosclerosis throughout its course. There is a distal 70% stenosis in th e posterolateral branch. The left main artery was unremarkable. The LAD revealed diffuse atherosclerosis without critical lesions. The diagonal vessels are free of significant disease. The circumflex artery revealed intimal irregularities without critical lesions. There is a small ramus intermedius that reveals a 60%-70% stenosis, which is unchanged from previous. Manual compression was used to close the femoral artery site. The patient tolerated the procedure well. SUMMARY: The procedure revealed: 1. A 70% stenosis in the distal posterolateral branch as well as a 60%-70% stenosis in a small ramus intermedius. 2. Left ventricular function is normal with an ejection fraction of 60%. 3. A dilated ascending aorta was noted. Given these findings, the patient's treatment should be medical therapy. A special emphasis should b e treatment for her hypertension, which is responsible for her dilated ascending aorta. The patient is currently on beta blockers as part of her hypertension regimen, which should be helpfu l. Malik Lamb MD cc: [id number] TT: 07/03/2016 10:35:51 en
[2016-07-03 11:24] VITALS: O2SAT 100
--- NOTE | 2016-07-03 11:52 | CARD ---
APPROVED REPORT EKG Measurement Heart [id number] CO [id number] <Conclusion> Sinus bradycardia Leftward axis
[2016-07-03 14:31] VITALS: BP 122/71; PULSE 56
== END 2016-07-03 15:35 | disposition home or self-care (01) ==
LOC: CATH 06:27
PROVIDERS: ATTEND Internal Medicine Cardiovascular Disease
DX: I25.10 Atherosclerotic heart disease of native coronary artery without angina pectoris (principal); I10 Essential (primary) hypertension
CPT/HCPCS: 36415; 80048; 85025; 85610; 85730; 86850; 86900; 93005; 93454; 93567; 99152; C1769; C2629; J1644; J2250; J3010; J7040 ×2; Q9967